=== PATIENT | male | born 1970 | race Two or more races ===

== ENCOUNTER 2017-09-22 13:07 | Emergency (ER) | payer BC ==
[2017-09-22] VITALS (7 sets, daily range): BP systolic 116–141; BP diastolic 64–83
[~2017-09-22] VITALS: Ht 170.2 cm; Wt 92.5 kg
[~2017-09-22 13:07] MED LIST: ATIVAN1 MG ORAL; LIBRIUM25 MG ORAL; PEPCID20 MG ORAL; PEPCID40 MG PO; PERCOCET 5-3251 EACH ORAL; PREVACID30 MG PO; PRILOSEC20 MG ORAL; PRILOSEC20 MG PO; PRILOSEC40 MG ORAL; PROTONIX40 MG ORAL; TRAMADOL HCL50 MG ORAL; TYLENOL EXTRA500 MG ORAL; TYLENOL650 MG/20. ORAL; ZITHROMAX250 MG ORAL; ZOFRAN ODT4 MG ORAL
[2017-09-22] MEDS ORDERED: Morphine Sulfate 4mg/ml Inj IVP ONE (13:30)
--- NOTE | 2017-09-22 13:40 | Emergency Room Report ---
History of Present Illness General Chief Complaint: Abdominal Pain Source: Patient (Emanuel Quiroz M.D.) Present Illness HPI The patient presents with lower abdominal pain that began yesterday morning. It 's constant and has gotten more severe (08/11). It's tried taking Tylenol without any help. He's been vomiting constantly. He's also passed some dark stool. He does drink alcohol but not daily. He sometimes gets the shakes when he stops drinking. He's never had abdominal pain like this. He states the radiates to his lower back. It is bilateral in the lower abdomen. He's been seen before for abdominal pain, but that was epigastric. There is mild tenderness there at this time, but much less than the pain in his lower abdomen. No dysuria, hematuria. No URI sy, cough, dyspnea, chest pain. No rashes. No headache. No fever. No dizziness. 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 Nursing Documentation: PMH: Agreed, PSxH: Agreed (Emanuel Quiroz M.D.) Nursing Documentation-PMH Hx Cardiac Problems: No Hx Cancer: No Hx Gastrointestinal Problems: Yes Hx Neurological Problems: Yes - addiction to alcohol Hx Neurologic Surgery: No (Emanuel Quiroz M.D.) Review of Systems All Other Systems: negative except mentioned in HPI (Emanuel Quiroz M.D.) Physical Exam Vital Signs Date Time Temp Pulse Resp B/P (MAP) Pulse Ox O2 Delivery O2 Flow Rate FiO2 09/22/17 13:13 97.9 87 20 145/88 95 Room Air Sp02 EP Interpretation: reviewed, normal General Appearance: well appearing, no apparent distress, GCS 15 Head: normocephalic Eyes: left eye other - L lid swelling without d/c, bilateral eye normal inspection, bilateral eye PERRL ENT: moist mucus membranes Neck: supple Respiratory: chest non-tender, lungs clear, normal breath sounds Cardiovascular #1: regular rate, rhythm Cardiovascular #2: 2+ radial (R) Gastrointestinal: normal inspection, normal bowel sounds, no mass, non- distended, no rebound, guarding - lower abdomen, not specific side, tenderness Rectal: heme positive stool - trace = brown Musculoskeletal: back normal, gait/station normal, normal range of motion Neurologic: alert, oriented x3, other, grossly normal Psychiatric: depressed affect Skin: normal inspection, warm/dry, other (Emanuel Quiroz M.D.) Medical Decision Making Diagnostic Impression: Primary Impression: Abdominal pain Qualified Codes: R10.30 - Lower abdominal pain, unspecified Additional Impressions: Alcohol abuse Guaiac + stool Mild alcohol withdrawal Hyperglycemia Elevated liver function tests ER Course Patient presents with severe low abdominal pain and vomiting. Differential includes gastritis, GERD, peptic ulcer disease, diverticulitis, appendicitis, viral syndrome, UTI amongst others. Due to the severity of the pain the patient will receive IV hydration, Pepcid, Zofran and morphine. He is also requesting something for the shakes. Due the severity of the pain also is evaluation will include a chest x-ray and abdominal CT with oral and IV contrast. We'll also obtain labs Initially the CT was ordered. However because the patient's white count is normal and the pain was some improved after treatment CT was canceled and abdominal film was ordered instead. Still with lower abdominal pain. Percocet given. CT June 2016 reviewed: Impression: A few nonspecific mildly prominent jejunal loops in the left upper quadrant, of doubtful significance, mild enteritis or ileus can't completely excludable No acute process otherwise Small fat-containing umbilical hernia Fatty liver Incidental findings as noted, including stable density at the entry to the right inguinal canal, stable low-attenuation area within the prostate, dependent pulmonary atelectatic changes Examined with RLQ tenderness (my exam is bilateral tenderness). Dr. Hanks suggests CT. Signed out to Dr. Hanks. Laboratory Tests Test 09/22/17 13:30 09/22/17 13:40 Urine Color Pale yellow Urine Appearance Clear Urine pH 6 (4.5-8.0) Urine Specific [place] 1.025 (1.005-1.035) Urine Protein 1+ (NEGATIVE) H Urine Glucose (UA) 4+ (NEGATIVE) H Urine Ketones Negative (NEGATIVE) Urine Occult Blood Negative (NEGATIVE) Urine Nitrite Negative (NEGATIVE) Urine Bilirubin Negative (NEGATIVE) Urine Urobilinogen Normal MG/DL (0.0-1.0) Urine Leukocyte Esterase Negative (NEGATIVE) Urine RBC 0 /HPF (0 - 0) Urine WBC 0-2 /HPF (0 - 0) Urine Squamous Epithelial Cells Occasional /LPF Urine Bacteria None /HPF (NONE) White Blood Count 6.6 K/UL (4.8-10.8) Red Blood Count 4.58 M/UL (4.70-6.10) L Hemoglobin 15.1 G/DL (14.2-18.0) Hematocrit 45.2 % (42.0-52.0) Mean Corpuscular Volume 99 FL (80-99) Mean Corpuscular Hemoglobin 32.9 PG (27.0-31.0) H Mean Corpuscular Hemoglobin Concent 33.3 G/DL (32.0-36.0) Red Cell Distribution Width 11.3 % (11.6-14.8) L Platelet Count 268 K/UL (150-450) Mean Platelet Volume 6.1 FL (6.5-10.1) L Neutrophils (%) (Auto) 60.6 % (45.0-75.0) Lymphocytes (%) (Auto) 24.5 % (20.0-45.0) Monocytes (%) (Auto) 10.8 % (1.0-10.0) H Eosinophils (%) (Auto) 3.1 % (0.0-3.0) H Basophils (%) (Auto) 0.9 % (0.0-2.0) Prothrombin Time 9.8 SEC (9.30-11.50) Prothrombin Time INR 0.9 (0.9-1.1) PTT 27 SEC (23-33) Sodium Level 138 MMOL/L (136-145) Potassium Level 3.8 MMOL/L (3.5-5.1) Chloride Level 103 MMOL/L (98-107) Carbon Dioxide Level 25 MMOL/L (21-32) Anion Gap 10 mmol/L (5-15) Blood Urea Nitrogen 9 mg/dL (7-18) Creatinine 0.7 MG/DL (0.55-1.30) Estimate Glomerular Filtration Rate > 60 mL/min (>60) Glucose Level 184 MG/DL (74-106) H Calcium Level 8.9 MG/DL (8.5-10.1) Total Bilirubin 0.3 MG/DL (0.2-1.0) Aspartate Amino Transferase (AST) 58 U/L (15-37) H Alanine Aminotransferase (ALT) 108 U/L (12-78) H Alkaline Phosphatase 133 U/L (46-116) H Troponin I 0.000 ng/mL (0.000-0.056) Total Protein 7.7 G/DL (6.4-8.2) Albumin 3.5 G/DL (3.4-5.0) Globulin 4.2 g/dL Albumin/Globulin Ratio 0.8 (1.0-2.7) L Lipase 179 U/L (73-393) (Emanuel Quiroz M.D.) ER Course Please refer to the initial note for the history examined the presentation Patient was pending CAT scan imaging At this time read by radiology as no acute disease Please note that there is a considerable delay in final workup as the CAT scan machine is not functioning at this facility patient requires transfer And has now returned with the CT imaging Patient doing clinically better and stable for close outpatient followup Labs Test 09/22/17 13:30 09/22/17 13:40 Urine Color Pale yellow Urine Appearance Clear Urine pH 6 (4.5-8.0) Urine Specific [place] 1.025 (1.005-1.035) Urine Protein 1+ (NEGATIVE) Urine Glucose (UA) 4+ (NEGATIVE) Urine Ketones Negative (NEGATIVE) Urine Occult Blood Negative (NEGATIVE) Urine Nitrite Negative (NEGATIVE) Urine Bilirubin Negative (NEGATIVE) Urine Urobilinogen Normal MG/DL (0.0-1.0) Urine Leukocyte Esterase Negative (NEGATIVE) Urine RBC 0 /HPF (0 - 0) Urine WBC 0-2 /HPF (0 - 0) Urine Squamous Epithelial Cells Occasional /LPF Urine Bacteria None /HPF (NONE) White Blood Count 6.6 K/UL (4.8-10.8) Red Blood Count 4.58 M/UL (4.70-6.10) Hemoglobin 15.1 G/DL (14.2-18.0) Hematocrit 45.2 % (42.0-52.0) Mean Corpuscular Volume 99 FL (80-99) Mean Corpuscular Hemoglobin 32.9 PG (27.0-31.0) Mean Corpuscular Hemoglobin Concent 33.3 G/DL (32.0-36.0) Red Cell Distribution Width 11.3 % (11.6-14.8) Platelet Count 268 K/UL (150-450) Mean Platelet Volume 6.1 FL (6.5-10.1) Neutrophils (%) (Auto) 60.6 % (45.0-75.0) Lymphocytes (%) (Auto) 24.5 % (20.0-45.0) Monocytes (%) (Auto) 10.8 % (1.0-10.0) Eosinophils (%) (Auto) 3.1 % (0.0-3.0) Basophils (%) (Auto) 0.9 % (0.0-2.0) Prothrombin Time 9.8 SEC (9.30-11.50) Prothromb Time International Ratio 0.9 (0.9-1.1) Activated Partial Thromboplast Time 27 SEC (23-33) Sodium Level 138 MMOL/L (136-145) Potassium Level 3.8 MMOL/L (3.5-5.1) Chloride Level 103 MMOL/L (98-107) Carbon Dioxide Level 25 MMOL/L (21-32) Anion Gap 10 mmol/L (5-15) Blood Urea Nitrogen 9 mg/dL (7-18) Creatinine 0.7 MG/DL (0.55-1.30) Estimat Glomerular Filtration Rate > 60 mL/min (>60) Glucose Level 184 MG/DL (74-106) Calcium Level 8.9 MG/DL (8.5-10.1) Total Bilirubin 0.3 MG/DL (0.2-1.0) Aspartate Amino Transf (AST/SGOT) 58 U/L (15-37) Alanine Aminotransferase (ALT/SGPT) 108 U/L (12-78) Alkaline Phosphatase 133 U/L (46-116) Troponin I 0.000 ng/mL (0.000-0.056) Total Protein 7.7 G/DL (6.4-8.2) Albumin 3.5 G/DL (3.4-5.0) Globulin 4.2 g/dL Albumin/Globulin Ratio 0.8 (1.0-2.7) Lipase 179 U/L (73-393) Serum Alcohol 5 mg/dL (OTILIA HANKS.Padmini) EKG Diagnostic Results Rate: normal Rhythm: NSR ST Segments: no acute changes (Emanuel Quiroz M.D.) Rhythm Strip Diag. Results EP Interpretation: yes Rhythm: NSR, no PVC's, no ectopy (Emanuel Quiroz M.D.) Other X-Ray Diagnostic Results Other X-Ray Diagnostic Results : # of Views/Limited Vs Complete: 2 View Indication: Pain EP Interpretation: Yes Interpretation: nonspecific bowel gas, no sbo, other - no masses (Emanuel Quiroz M.D.) CT/MRI/US Diagnostic Results CT/MRI/US Diagnostic Results : Impression CT abdomen pelvis: Refer to her report for full specifics, no evidence of diverticulitis, no evidence of appendicitis no acute disease (OTILIA HANKS D.O.) Last Vital Signs Date Time Temp Pulse Resp B/P (MAP) Pulse Ox O2 Delivery O2 Flow Rate FiO2 09/22/17 17:25 97.7 83 18 121/65 98 Room Air Status: improved (Emanuel Quiroz M.D.) Status: improved (OTILIA HANKS D.O.) Disposition: HOME, SELF-CARE Condition: Improved Scripts Famotidine (PEPCID) 20 Mg Tablet 20 MG ORAL BEDTIME, #7 TAB 0 Refills Prov: OTILIA HANKS D.O. 09/22/17 Additional Instructions: Patient is provided with the discharge instructions notified to follow up with primary doctor in the next 2-3 days otherwise return to the er with any worsening symptoms. Please note that this report is being documented using [employer] technology. This can lead to erroneous entry secondary to incorrect interpretation by the dictating instrument. Emanuel Quiroz M.D. Sep 22, 2017 13:40 OTILIA HANKS D.O. Sep 22, 2017 21:18
[2017-09-22] MEDS ORDERED: LORazepam Inj 2mg/ml 1ml IV ONE (13:45)
[2017-09-22 13:53] LABS: APPEARANCE,URINE CLEAR; KETONES,URINE NEGATIVE (NEGATIVE); LEUKOCYTE ESTERASE ,URINE NEGATIVE (NEGATIVE); NITRITE,URINE NEGATIVE (NEGATIVE); PH,URINE 6 (4.5-8.0); PROTEIN,URINE 1+ (NEGATIVE); UROBILINOGEN,URINE NORMAL MG/DL (0.0-1.0)
[2017-09-22 14:03] LABS: RBC,URINE 0 /HPF (0 - 0); SQUAMOUS EPITHELIAL CELL,UR OCCASIONAL /LPF (NONE/OCC); WBC,URINE 0-2 /HPF (0 - 0)
[2017-09-22 14:14] LABS: BASOPHILS % (AUTO) 0.9 % (0.0-2.0); EOSINOPHILS % (AUTO) 3.1 % (0.0-3.0); LYMPHOCYTES % (AUTO) 24.5 % (20.0-45.0); MEAN CORPUSCULAR HEMOGLOBIN 32.9 PG (27.0-31.0); MEAN CORPUSCULAR HGB CONC 33.3 G/DL (32.0-36.0); MEAN CORPUSCULAR VOLUME 99 FL (80-99); MEAN PLATELET VOLUME 6.1 FL (6.5-10.1); MONOCYTES % (AUTO) 10.8 % (1.0-10.0); NEUTROPHILS % (AUTO) 60.6 % (45.0-75.0); PLATELET COUNT 268 K/UL (150-450); RED BLOOD COUNT 4.58 M/UL (4.70-6.10); RED CELL DISTRIBUTION WIDTH 11.3 % (11.6-14.8); WHITE BLOOD COUNT 6.6 K/UL (4.8-10.8)
[2017-09-22 14:27] LABS: ALANINE AMINOTRANSFERASE 108 U/L (12-78); ALBUMIN/GLOBULIN RATIO 0.8 (1.0-2.7); ANION GAP 10 mmol/L (5-15); ASPARTATE AMINO TRANSFERASE 58 U/L (15-37); CALCIUM 8.9 MG/DL (8.5-10.1); CARBON DIOXIDE 25 MMOL/L (21-32); CHLORIDE 103 MMOL/L (98-107); CREATININE 0.7 MG/DL (0.55-1.30); GLOMERULAR FILTRATION RATE > 60 mL/min (>60); LIPASE 179 U/L (73-393); POTASSIUM 3.8 MMOL/L (3.5-5.1); SODIUM 138 MMOL/L (136-145); TOTAL PROTEIN 7.7 G/DL (6.4-8.2)
[2017-09-22 14:28] LABS: INR 0.9 (0.9-1.1); PROTHROMBIN TIME 9.8 SEC (9.30-11.50)
[2017-09-22] MEDS ORDERED: oxyCODONE HCL/Acetaminophen 5/325mg ORAL ONE (16:15)
[2017-09-22] MEDS ORDERED: PEPCID20 MG ORAL (21:12)
--- NOTE | 2017-09-23 08:15 | Diagnostic Imaging Report ---
Indication: Shortness of breath Technique: One view of the chest Comparison: 10/11/2014 Findings: Lungs and pleural spaces are clear. Heart size is upper limits normal. No significant change Impression: No acute process This agrees with the preliminary interpretation provided by the emergency room physician
--- NOTE | 2017-09-23 10:45 | Diagnostic Imaging Report ---
Indication: Abdominal pain Technique: Supine view of the abdomen Comparison: 07/15/2016 Findings: Unremarkable bowel gas pattern. Unusual masses or calcifications. The bones are unremarkable Impression: Negative This agrees with the preliminary interpretation provided by the emergency room physician
--- NOTE | 2017-09-24 08:46 | Cardiology Report ---
APPROVED REPORT EKG Measurement Heart [id number] Normal sinus rhythm Normal ECG
== END 2017-09-22 21:25 | disposition home or self-care (01) ==
LOC: EMR 14:30
DX: R10.30 Lower abdominal pain, unspecified (principal); R19.5 Other fecal abnormalities; F10.239 Alcohol dependence with withdrawal, unspecified; R79.89 Other specified abnormal findings of blood chemistry; R73.9 Hyperglycemia, unspecified; R06.02 Shortness of breath
CPT/HCPCS: 36415; 71010; 74000; 80053; 81003; 83690; 84484; 85025; 85610; 85730; 86850; 86900; 86901; 93005; 96361; 96374; 96375; 99284; G0480; J2270; J2405; S0028; 80329

== ENCOUNTER 2020-08-14 22:03 | Inpatient (IN) | payer BC, OTHER ==
[~2020-08-14] VITALS: Ht 167.6 cm; Wt 93.0 kg
[~2020-08-14 22:03] MED LIST changes: +JANUVIA100 MG ORAL; +PANTOPRAZOLE SO40 MG ORAL
[2020-08-14 22:18] VITALS: BP 138/85
--- NOTE | 2020-08-14 22:18 | NUR ---
ED Nurse Note: pt ambulated into ed from home CO 9/10 lower abdominal pain that radiates to lower back. Pt aao x 4, ambulates with steady gait, skin intact. Pt states that pain started today but has n/v x 3 days, denies fever, diarrhea. Pt states that issue has happened recently in the past and pt was seen at [facility] [place] [place] for same complaint. Pt VSS, facial grimacing noted. ERMD at bedside. Awaiting further orders.
[2020-08-14] MEDS ORDERED: chlordiazePOXIDE 25mg Cap ORAL ONE (22:30)
[2020-08-14] MEDS ORDERED: Lidocaine 2% Visc 15ml soln ORAL ONE (22:30)
[2020-08-14] MEDS ORDERED: Omnipaque-300 100ml vial INJ PRN (22:30)
[2020-08-14] MEDS ORDERED: Ketorolac 30mg Inj IV ONE (22:30)
[2020-08-14] MEDS ORDERED: Dicyclomine HCl 10mg/5ml oral soln ORAL ONE (22:30)
[2020-08-14] MEDS ORDERED: Mylanta II UD 30ml ORAL ONE (22:30)
--- NOTE | 2020-08-14 22:30 | NUR ---
ED Nurse Note: all blood work and urine obtained and sent to lab.
--- NOTE | 2020-08-14 22:40 | Emergency Room Report ---
History of Present Illness General Chief Complaint: Abdominal Pain Source: Patient Present Illness HPI 49-year-old male here with right lower quadrant abdominal pain. Patient was recently in the hospital approximately 2 weeks ago for alcoholic gastritis and an upper GI bleed. Patient was discharged with prescription for Protonix which he says he has been taking. He has continued to drink daily. Last drink was about 24 hours ago. Patient says that he is also having tremulousness right now and "I need something for the shakes." He says the pain is located mostly in the right lower quadrant and radiates to the left lower quadrant. Has felt nauseous but has not vomited. No diarrhea. No fevers, chills, chest pain, palpitations, shortness of breath, back pain, diarrhea. Says he is also complaining of some mild dysuria as well. No penile discharge. 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 Nursing Documentation-[facility] Past Medical History: No History, Except For Hx Cardiac Problems: No Hx Hypertension: Yes Hx Diabetes: Yes Hx Cancer: No Hx Gastrointestinal Problems: Yes Hx Neurological Problems: No Hx Cerebrovascular Accident: Yes - 2018 Hx Neurologic Surgery: No Review of Systems All Other Systems: negative except mentioned in HPI Physical Exam Vital Signs Date Time Temp Pulse Resp B/P (MAP) Pulse Ox O2 Delivery O2 Flow Rate FiO2 08/14/20 22:08 98.4 101 18 138/85 (102) 96 Room Air Sp02 EP Interpretation: reviewed, normal General Appearance: alert, non-toxic, other - Appears uncomfortable, mildly tremulous Head: normocephalic, atraumatic Eyes: bilateral eye normal inspection, bilateral eye PERRL ENT: hearing grossly normal, normal pharynx, no angioedema, normal voice Neck: full range of motion, supple/symm/no masses Respiratory: chest non-tender, lungs clear, normal breath sounds, speaking full sentences Cardiovascular #1: regular rate, rhythm, no edema Cardiovascular #2: 2+ carotid (R), 2+ carotid (L), 2+ radial (R), 2+ radial (L) , 2+ dorsalis pedis (R), 2+ dorsalis pedis (L) Gastrointestinal: normal bowel sounds, soft, non-distended, no guarding, no rebound, other - Pain on palpation in multiple regions including the epigastric area, left upper quadrant, right lower quadrant, left lower quadrant. Pain worst at the right lower quadrant. Positive Rovsing sign. Negative Monzon sign Rectal: deferred Genitourinary: normal inspection, no CVA tenderness Musculoskeletal: back normal, normal range of motion, calf tenderness, gait/ station normal, non-tender Neurologic: alert, motor strength/tone normal, sensory intact, responsive, speech normal Psychiatric: judgement/insight normal, memory normal, mood/affect normal, no suicidal/homicidal ideation Lymphatic: no adenopathy Medical Decision Making Diagnostic Impression: Primary Impression: Infectious colitis Additional Impressions: UTI (urinary tract infection) Pyelonephritis Alcohol withdrawal ER Course Laboratory Tests Test 08/14/20 22:15 08/14/20 22:59 White Blood Count 4.9 K/UL (4.8-10.8) Red Blood Count 4.80 M/UL (4.70-6.10) Hemoglobin 15.3 G/DL (14.2-18.0) Hematocrit 45.8 % (42.0-52.0) Mean Corpuscular Volume 95 FL (80-99) Mean Corpuscular Hemoglobin 31.9 PG (27.0-31.0) H Mean Corpuscular Hemoglobin Concent 33.4 G/DL (32.0-36.0) Red Cell Distribution Width 12.2 % (11.6-14.8) Platelet Count 249 K/UL (150-450) Mean Platelet Volume 6.3 FL (6.5-10.1) L Neutrophils (%) (Auto) 54.5 % (45.0-75.0) Lymphocytes (%) (Auto) 35.1 % (20.0-45.0) Monocytes (%) (Auto) 8.3 % (1.0-10.0) Eosinophils (%) (Auto) 0.8 % (0.0-3.0) Basophils (%) (Auto) 1.3 % (0.0-2.0) Urine Color Yellow Urine Appearance Slightly cloudy Urine pH 5 (4.5-8.0) Urine Specific [place] 1.025 (1.005-1.035) Urine Protein 3+ (NEGATIVE) H Urine Glucose (UA) 4+ (NEGATIVE) H Urine Ketones 1+ (NEGATIVE) H Urine Blood 1+ (NEGATIVE) H Urine Nitrite Negative (NEGATIVE) Urine Bilirubin Negative (NEGATIVE) Urine Urobilinogen Normal MG/DL (0.0-1.0) Urine Leukocyte Esterase 1+ (NEGATIVE) H Urine RBC 2-4 /HPF (0 - 0) H Urine WBC 5-10 /HPF (0 - 0) H Urine Squamous Epithelial Cells Occasional /LPF Urine Bacteria Moderate /HPF (NONE) H Urine Mucus Many /LPF (NONE/OCC) H Sodium Level 140 MMOL/L (136-145) Potassium Level 3.5 MMOL/L (3.5-5.1) Chloride Level 102 MMOL/L (98-107) Carbon Dioxide Level 26 MMOL/L (21-32) Anion Gap 12 mmol/L (5-15) Blood Urea Nitrogen 12 mg/dL (7-18) Creatinine 0.8 MG/DL (0.55-1.30) Estimated Glomerular Filtration Rate > 60 mL/min (>60) Glucose Level 275 MG/DL (74-106) H Calcium Level 8.6 MG/DL (8.5-10.1) Total Bilirubin 0.5 MG/DL (0.2-1.0) Aspartate Amino Transferase (AST) 67 U/L (15-37) H Alanine Aminotransferase (ALT) 140 U/L (12-78) H Alkaline Phosphatase 117 U/L (46-116) H Total Protein 8.1 G/DL (6.4-8.2) Albumin 4.0 G/DL (3.4-5.0) Globulin 4.1 g/dL Albumin/Globulin Ratio 1.0 (1.0-2.7) Lipase 177 U/L (73-393) Acetone Level Negative (NEGATIVE) Venous Blood pH 7.353 Venous Blood Partial Pressure CO2 45 Venous Blood Partial Pressure O2 49.6 Venous Blood HCO3 24.5 Venous Blood Base Excess -1.4 Venous Blood Carboxyhemoglobin 0.6 % (0.5-1.5) Methemoglobin 0.5 CT abdomen pelvis: Stranding about the perinephric spaces bilaterally. Status post appendectomy. Mild or early inflammatory or infectious colitis of the descending colon. EKG: Rate 88 bpm. Sinus rhythm. Normal axis. No ectopy. No ST or T wave abnormalities 49-year-old male with history of alcohol abuse, alcoholic gastritis, recent upper GI bleed, here with lower abdominal pain. Patient was also complaining of dysuria. Urinalysis showed evidence of urinary tract infection. He was given Rocephin in the emergency department. CT abdomen pelvis also revealed descending colitis, concerning for infectious colitis. Patient was also given Flagyl in the emergency department. Patient was also notably hyperglycemic with a initial blood glucose of 275. He was given 6 units of insulin IV and repeat glucose was moderately improved. Patient has been noncompliant with his insulin regimen and continues to drink alcohol. Acetone negative and VBG did not reveal acidosis. No evidence of DKA at this time. He showed evidence of some tremulousness and was given Ativan in the emergency department with good resolution of his tremulousness. To be admitted to [facility] for UTI and infectious colitis. Last Vital Signs Date Time Temp Pulse Resp B/P (MAP) Pulse Ox O2 Delivery O2 Flow Rate FiO2 08/14/20 22:08 98.4 101 18 138/85 (102) 96 Room Air Disposition: ADMITTED INPATIENT Condition: Stable Will Ordoñez M.D. Aug 14, 2020 22:40
--- NOTE | 2020-08-14 22:40 | NUR ---
ED Nurse Note: all medications adminsitered, pt tolerated well no ss of distress noted. will continue to monitor.
[2020-08-14 22:52] LABS: BASOPHILS % (AUTO) 1.3 % (0.0-2.0); EOSINOPHILS % (AUTO) 0.8 % (0.0-3.0); HEMATOCRIT 45.8 % (42.0-52.0); HEMOGLOBIN 15.3 G/DL (14.2-18.0); LYMPHOCYTES % (AUTO) 35.1 % (20.0-45.0); MEAN CORPUSCULAR VOLUME 95 FL (80-99); MONOCYTES % (AUTO) 8.3 % (1.0-10.0); NEUTROPHILS % (AUTO) 54.5 % (45.0-75.0); PLATELET COUNT 249 K/UL (150-450); RED CELL DISTRIBUTION WIDTH 12.2 % (11.6-14.8); WHITE BLOOD COUNT 4.9 K/UL (4.8-10.8)
[2020-08-14 22:54] LABS: APPEARANCE,URINE SLIGHTLY CLOUDY; BILIRUBIN, URINE NEGATIVE (NEGATIVE); GLUCOSE, URINE (UA) 4+ (NEGATIVE); KETONES,URINE 1+ (NEGATIVE); LEUKOCYTE ESTERASE ,URINE 1+ (NEGATIVE); NITRITE,URINE NEGATIVE (NEGATIVE); PH,URINE 5 (4.5-8.0); PROTEIN,URINE 3+ (NEGATIVE); UROBILINOGEN,URINE NORMAL MG/DL (0.0-1.0)
[2020-08-14 22:55] LABS: COLOR,URINE YELLOW
[2020-08-14] MEDS ORDERED: Insulin Human Regular 100units/ml 3ml IV ONE (23:00)
[2020-08-14 23:07] LABS: ANION GAP 12 mmol/L (5-15); BLOOD UREA NITROGEN 12 mg/dL (7-18); CALCIUM 8.6 MG/DL (8.5-10.1); CARBON DIOXIDE 26 MMOL/L (21-32); CHLORIDE 102 MMOL/L (98-107); CREATININE 0.8 MG/DL (0.55-1.30); POTASSIUM 3.5 MMOL/L (3.5-5.1); SODIUM 140 MMOL/L (136-145)
[2020-08-14 23:11] LABS: ALANINE AMINOTRANSFERASE 140 U/L (12-78); ALKALINE PHOSPHATASE 117 U/L (46-116); ASPARTATE AMINO TRANSFERASE 67 U/L (15-37); BILIRUBIN,TOTAL 0.5 MG/DL (0.2-1.0)
[2020-08-14] MEDS ORDERED: cefTRIAXone 1 GM in NS 55 ML IVPB ONE (23:15)
--- NOTE | 2020-08-14 23:15 | NUR ---
ED Nurse Note: VBG obtained and sent to RT
--- NOTE | 2020-08-14 23:59 | NUR ---
ED Nurse Note: pt taken to CT in stable condition.
[2020-08-15] VITALS (7 sets, daily range): BP systolic 122–144; BP diastolic 68–90
--- NOTE | 2020-08-15 00:50 | NUR ---
ED Nurse Note: pt returned from CT in stable condition.
--- NOTE | 2020-08-15 00:51 | Diagnostic Imaging Report ---
EXAM: CT Abdomen and Pelvis With Intravenous Contrast CLINICAL HISTORY: PAIN TECHNIQUE: Axial computed tomography images of the abdomen and pelvis with intravenous contrast. CTDI is 9.10 mGy and DLP is 492.40 mGy-cm. One or more of the following dose reduction techniques were used: automated exposure control, adjustment of the mA and/or kV according to patient size, use of iterative reconstruction technique. COMPARISON: 06/21/2016. FINDINGS: Limitations: Limited evaluation of the motion artifact could Lung bases: Patchy airspace disease noted posteriorly at the lung bases presumably in the basilar atelectasis. Pneumonia cannot be excluded and clinical correlation is advised to Probable atelectasis versus pneumonia within the lingular region. Heart: Mild cardiomegaly. Mediastinum: Small hiatal hernia and probable distal esophagitis. ABDOMEN: Liver: Diffuse fatty infiltration of the liver is noted. The liver and the spleen enhance uniformly. Gallbladder and bile ducts: See below. Pancreas: See below. Spleen: See above. Adrenals: The adrenal glands, the head, body, tail of the pancreas, and the gallbladder are unremarkable. Kidneys and ureters: Both kidneys are shown to excrete contrast bilaterally without renal calculus or hydronephrosis. Minimal nonspecific stranding about the perinephric spaces bilaterally. Stomach and bowel: Moderate quantity of stool throughout the colon. No evidence of bowel obstruction. Findings suggestive of diffuse wall thickening of the descending colon extending to the sigmoid colon suggestive of mild or early inflammatory or infectious colitis. PELVIS: Appendix: Status post appendectomy. Bladder: Unremarkable. No mass. Reproductive: Prostate gland measures 5 x 5.8 cm zone is enlarged. ABDOMEN and PELVIS: Intraperitoneal space: Unremarkable. No free air. No significant fluid collection. Bones/joints: No acute fracture. No dislocation. Soft tissues: 2 cm umbilical hernia containing mesenteric fat only. Ischiorectal fat is clean. Vasculature: Flow is demonstrated within the celiac, SMA, the renal arteries, and TRACE. No abdominal aortic aneurysm. Lymph nodes: No retroperitoneal lymphadenopathy. No pelvic or inguinal lymphadenopathy. Other findings: Elevation of the right hemidiaphragm. Ischemic etiologies felt to be unlikely. IMPRESSION: 1. Diffuse fatty infiltration of the liver. 2. The gallbladder is unremarkable. 3. Nonspecific stranding about the perinephric spaces. 4. Status post appendectomy. 5. No evidence of bowel obstruction. 6. Findings suggestive of mild or early inflammatory or infectious colitis of the descending colon extending to the sigmoid colon. 7. Enlarged prostate gland.
[2020-08-15] MEDS ORDERED: Morphine Sulfate 4mg/ml Inj (IV USE ONLY) IVP ONE (01:45)
--- NOTE | 2020-08-15 02:00 | NUR ---
ED Nurse Note: all medications administered, pt tolerated well no ss of distress noted. will continue to monitor.
--- NOTE | 2020-08-15 03:21 | NUR ---
ED Nurse Note: Report given to Abebe Devlin on MS unit
--- NOTE | 2020-08-15 03:38 | NUR ---
ER DISCHARGE NOTE: Patient is cleared to be discharged to MS unit per ERMD, pt is aox4, 99% on room air, with stable vital signs. pt was able to verbalize understanding. pt is able to ambulate with steady gait. pt took all belongings. Report given to Abebe Devlin on MS unit. 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
--- NOTE | 2020-08-15 03:58 | NUR ---
NURSE NOTES: Patient came from ER via gurney. Report given by KIKA Avitia. Patient is awake, alert x4. On room air with no signs of distress or SOB. VSS. Skin in tact. Ambulatory with steady gate. Belongings accounted for. Left AC 20g IV intact and patent. Bed locked and in lowest position. Call light in reach. Patient currently C/O nausea and abdominal pain. Admission orders received from Dr. Lio Mcmanus. Will follow plan of care.
[2020-08-15] MEDS ORDERED: Morphine Sulfate 2mg/ml Inj(IV/IM USE ONLY) IVP PRN (04:15)
--- NOTE | 2020-08-15 04:35 | NUR ---
NURSE NOTES: Patient noted with visible tremors. Spoke with Dr. Mcmanus. New orders received.
[2020-08-15] MEDS: Morphine Sulfate 4mg/ml Inj (IV USE ONLY) IVP PRN ×4 (04:46→20:06)
[2020-08-15] MEDS: LORazepam Inj 2mg/ml 1ml IV PRN ×4 (04:55→20:07)
--- NOTE | 2020-08-15 06:23 | NUR ---
NURSE HAND-OFF: Important Events on Shift: Admission, pain/nausea control Patient Status: Stable Diet: Clear Liquid Pending Orders: Remaining admission orders Pending Results/Labs: N/A Pending MD notification: N/A Latest Vital Signs: Temperature 98.1 , Pulse 94 , B/P 123 /79 , Respiratory Rate 18 , O2 SAT 97 , Room Air, O2 Flow Rate . Vital Sign Comment: Latest Vanessa Fall Score: 35 Fall Risk: Medium Risk Safety Measures: Call light Within Reach, Bed Alarm Zone 1, Side Rails Side Rails x2, Bed position Low and Locked. Fall Precautions: Patient Fall Education Addendum: 08/15/20 at 0626 by ROGER GOODWIN RN Full Liquid Diet Addendum: 08/15/20 at 0730 by ROGER GOODWIN RN Report given to KIKA Leon
--- NOTE | 2020-08-15 07:34 | NUR ---
NURSE NOTES: Report received from KIKA Devlin. Patient seen in bed, AAOx4, on room air, ambulatory. Patient able to make needs known. Patient denies pain or SOB at this time. Breathing is even and unlabored. IV site patent and intact. RN instructed patient to use call light before ambulating if felt dizzy or weak. Bed is locked and placed in lowest position. Call light within reach. Will continue to monitor
[2020-08-15] MEDS: metroNIDAZOLE 500mg tab ORAL SCH ×3 (08:41→20:05)
[2020-08-15] MEDS: cefTRIAXone 1 GM in D5W 55 ML IVPB SCH (08:41)
--- NOTE | 2020-08-15 09:00 | NUR ---
NURSE NOTES: RN tried to get recon meds for patient and asked what time patient has last taken certain medication. Patient unfamiliar with medication, but recalls having diabetic medication.
--- NOTE | 2020-08-15 12:16 | NUR ---
CASE MANAGEMENT: INITIAL REVIEW 49YR OLD MALE FROM HOME CC:ABDOMINAL PAIN SI:URINARY TRACT INFECTION . INFECTION COLITIS . PYELONEPHRITIS . ALCOHOL WITHDRAWAL 98.5 101 18 138/85 96% ON RA BG 275 AST/ALT 67/140 ALKP 117 URINE + PROTEIN +GLUCOSE + RBC+WBC +BACTERIA + MUCUS IS:IVF NS BOLUS X1 `IV ZOFRAN X1 IV PEPCID X1 MYLANTA P X1 LIDOCAINE PO X2 BENTYL PO X1 IV TORADOL X1 IV NOVOLIN R X[address] X[address] Abdomen Pelvis w/Contrast-Diffuse fatty infiltration of the liver. The gallbladder is unremarkable. Nonspecific stranding about the perinephric spaces. Status post appendectomy. No evidence of bowel obstruction. Findings suggestive of mild or early inflammatory or infectious colitis of the descending colon extending to the sigmoid colon. Enlarged prostate gland. \: 4E MED SURG UNIT DCP: HOME WHEN STABLE PLAN: MONITOR OUTPUT MANAGE PAIN CONT IV HYDRATION CONT IV ABD ALCOHOL ABUSE EDUCATION CASE MANAGEMENT: REVIEW 08/15/20 SI:URINARY TRACT INFECTION . INFECTION COLITIS . PYELONEPHRITIS . ALCOHOL WITHDRAWAL 97.3 82 18 135/68 98% ON RA NO LABS IS:IV ROCEPHIN QD FLAGYL PO TID PROTONIX PO QD IV MORPHINE SULFATE Q3HR/PRN \: 4E MED SURG UNIT DCP: HOME WHEN STABLE PLAN: MONITOR OUTPUT MANAGE PAIN CONT IV HYDRATION CONT IV ABD ALCOHOL ABUSE EDUCATION
--- NOTE | 2020-08-15 16:23 | NUR ---
*-* INSURANCE *-* UPDATED CLINICALS AND REVIEWS HAVE BEEN FAXED TO: Auth# [id number] Fax Clinicals: [phone] CM: Anna Foote [phone]
--- NOTE | 2020-08-15 19:36 | NUR ---
HAND-OFF: Report given to KIKA Sneed.
--- NOTE | 2020-08-15 19:46 | NUR ---
NURSE NOTES: Received patient awake, alert, verbal, resting in bed, comfortable.
[2020-08-15] MEDS ORDERED: Tamsulosin 0.4mg cap ORAL SCH (21:00)
[2020-08-15] MEDS ORDERED: Milk of Magnesia 30ml Ud ORAL PRN (21:00)
[2020-08-16] MEDS: Morphine Sulfate 4mg/ml Inj (IV USE ONLY) IVP PRN ×2 (00:08→04:16)
[2020-08-16] MEDS: LORazepam Inj 2mg/ml 1ml IV PRN ×2 (00:08→04:15)
[2020-08-16 04:05] VITALS: BP 143/91
[2020-08-16] MEDS: metroNIDAZOLE 500mg tab ORAL SCH (05:32)
[2020-08-16 06:52] LABS: ALANINE AMINOTRANSFERASE 126 U/L (12-78); ALBUMIN 3.4 G/DL (3.4-5.0); ALKALINE PHOSPHATASE 95 U/L (46-116); ANION GAP 8 mmol/L (5-15); ASPARTATE AMINO TRANSFERASE 71 U/L (15-37); BILIRUBIN,TOTAL 1.1 MG/DL (0.2-1.0); BLOOD UREA NITROGEN 15 mg/dL (7-18); CALCIUM 7.9 MG/DL (8.5-10.1); CARBON DIOXIDE 29 MMOL/L (21-32); CHLORIDE 106 MMOL/L (98-107); CHOLESTEROL 156 MG/DL (< 200); CREATININE 0.8 MG/DL (0.55-1.30); HDL CHOLESTEROL 44 MG/DL (40-60); POTASSIUM 3.8 MMOL/L (3.5-5.1); SODIUM 143 MMOL/L (136-145); TRIGLYCERIDES 176 MG/DL (30-150)
--- NOTE | 2020-08-16 07:18 | NUR ---
HAND-OFF: Report given to Edward Feliz RN.
--- NOTE | 2020-08-16 07:41 | NUR ---
NURSE NOTES: Report received from KIKA Sneed. Patient seen in bed, AAOx4, on room air, ambulatory. Patient able to make needs known. Patient complains on moderate pain, RN will give PRN medication. Breathing is even and unlabored. IV site patent and intact. RN instructed patient to use call light before ambulating if felt dizzy or weak. Bed is locked and placed in lowest position. Call light within reach. Will continue to monitor
[2020-08-16 08:00] VITALS: BP 143/84
--- NOTE | 2020-08-16 08:00 | History and Physical Report ---
DATE OF ADMISSION: 08/15/2020 CHIEF COMPLAINT: Abdominal pain and nausea. HISTORY OF PRESENT ILLNESS: This is a 49-year-old male who has history of alcohol abuse was recently admitted to the hospital at [place] for alcoholic gastritis and improved. He was sent home on some Ativan because he also was shaky and was in withdrawal due to this hospitalization. He now presents with similar symptoms. He has had nausea for the past two days and also lower abdominal pain. CT scan shows possible infectious colitis. He was admitted for further care. PAST MEDICAL HISTORY: History of diabetes, hypertension, and reported history of CVA in 2018. MEDICATIONS: Reviewed in [facility]. SOCIAL HISTORY: History of alcohol abuse as mentioned, he drinks about 6 to 8 beers a day. He still continues to drink. No history of smoking. REVIEW OF SYSTEMS: As above. PHYSICAL EXAMINATION: GENERAL: The patient is a 49-year-old male, in no acute distress. VITAL SIGNS: Blood pressure is 127/70, pulse 79, respirations 19, temperature 98.3. HEENT: [place] conjunctivae. Anicteric sclerae. NECK: Supple. LUNGS: Clear to auscultation. HEART: S1 and S2 without murmurs or rubs. ABDOMEN: Soft, nontender. EXTREMITIES: No cyanosis or edema. LABORATORY FINDINGS: CBC shows WBC of 4900, hematocrit is 45.8, hemoglobin 15.3, and platelet is 249,000. Chemistry panel shows serum sodium 140, potassium 3.5, chloride 102, CO2 26, BUN 12, creatinine 0.8, blood sugar is 275. UA shows 5 to 10 wbc's per high-power field and moderate bacteria. ASSESSMENT: This is a 49-year-old male who was admitted with abdominal pain and nausea, some suggestion of the colitis on the CT scan. He may also have some urinary tract infection with alcoholic liver disease. His nausea may be again from an alcoholic gastritis. PLAN: The patient will be on PPIs. He was started on full liquid diet and he is feeling better now. We will advance to a diabetic diet. The patient was started on antibiotics. Urine culture will be sent. ID consultation was called. Labs will be followed and adjustments will be made in the patient's regimen. Thank you very much for this consultation Derick Mcmanus M.D. DR: Ольга JOB#: [id number] CC:
--- NOTE | 2020-08-16 08:01 | Consultation ---
DATE OF CONSULTATION: 08/15/2020 INFECTIOUS DISEASES CONSULTATION CONSULTING PHYSICIAN: Lucius Mcmanus MD PRIMARY ATTENDING PHYSICIAN: Derick Mcmanus MD REASON FOR CONSULTATION: UTI. HISTORY OF PRESENT ILLNESS: This is a 49-year-old male admitted today complaining of lower abdominal pain and has also problem passing urine. The patient had a recent admission to [facility] around 2 weeks ago with alcoholic gastritis and still has nausea and vomiting. PAST MEDICAL HISTORY: Alcoholic gastritis, chronic alcohol abuse, GI bleeding, diabetes mellitus, hypertension, BPH, and CVA in 2018. ALLERGIES: No known drug allergies. PAST SURGICAL HISTORY: History of appendectomy. MEDICATIONS: Getting Januvia, milk of magnesia, Restoril, ceftriaxone, Protonix, and metronidazole. SOCIAL HISTORY: Originally from [place]. Single. Drinking 5 to 8 beers daily. Denies smoking and drug abuse. REVIEW OF SYSTEMS: No fever. No chills. He has nausea and vomiting. No coughing. No shortness of breath. He has lower abdominal pain. He has difficulty to start urine. PHYSICAL EXAMINATION: VITAL SIGNS: Temperature 97.3, pulse 73, blood pressure 130/66. GENERAL APPEARANCE: No acute distress. HEAD AND NECK: [place] conjunctivae. HEART: Normal rate. LUNGS: Clear. ABDOMEN: Soft and nontender. EXTREMITIES: He has no edema. NEUROLOGIC: He is awake, alert, and oriented x3. LABORATORY AND DIAGNOSTIC DATA: WBC 4.9, hemoglobin 15.3, hematocrit 54.8, and platelet is 249,000. Sodium 140, potassium 3.5, chloride 102, bicarb 26, BUN 12, creatinine 0.8, glucose 275. AST 67, ALT 140, alkaline phosphatase is 117. Acetone was negative. UA showed wbc's of [address] scan of the abdomen and pelvis showed diffuse fatty infiltration of liver, unremarkable gallbladder, nonspecific stranding about the perinephric spaces, mild or early inflammatory or infectious colitis of descending colon through sigmoid colon, and enlarged prostate gland. IMPRESSION: Pyuria, likely UTI. He has lower abdominal pain and dysuria. He also has BPH. May have mild or early colitis. He has fatty liver, alcoholic gastritis, alcohol abuse and dependence, diabetes mellitus, and hypertension. RECOMMENDATION: We will continue with ceftriaxone. We will follow up the culture. Consider starting treatment for BPH. At the end of my exam, I thank Dr. Derick Mcmanus for involving me in the care of this patient. Lucius Mcmanus M.D. DR: Wale JOB#: [id number] CC:
[2020-08-16] MEDS: cefTRIAXone 1 GM in D5W 55 ML IVPB SCH (08:05)
[2020-08-16 08:10] LABS: BILIRUBIN,DIRECT 0.2 MG/DL (0.0-0.3)
--- NOTE | 2020-08-16 10:51 | Infectious Diseases Prog Note ---
Assessment/Plan Assessment/Plan IMPRESSION: Pyuria, likely UTI. BPH. Early colitis. Alcoholic fatty liver, Alcoholic gastritis, Alcohol abuse and dependence, Diabetes mellitus, Hypertension. RECOMMENDATION: We will continue with ceftriaxone. We will follow up the cultures. Subjective ROS Limited/Unobtainable: No Constitutional: Reports: no symptoms Respiratory: Reports: no symptoms Cardiovascular: Reports: no symptoms Gastrointestinal/Abdominal: Reports: no symptoms Genitourinary: Reports: no symptoms Allergies: Coded Allergies: NO KNOWN ALLERGIES (Unverified Allergy, Unknown, 07/29/20) Objective Last 24 Hour Vital Signs Date Time Temp Pulse Resp B/P (MAP) Pulse Ox O2 Delivery O2 Flow Rate FiO2 08/16/20 09:00 Room Air 08/16/20 08:00 97.5 98 19 143/84 (103) 96 08/16/20 04:45 92 18 143/91 96 08/16/20 04:45 97.9 08/16/20 04:15 92 18 143/91 96 08/16/20 04:05 97.9 92 18 143/91 (108) 96 08/16/20 00:08 81 18 138/90 95 08/15/20 20:55 Room Air 08/15/20 20:07 81 18 138/90 95 08/15/20 20:07 97.9 81 18 138/90 (106) 95 08/15/20 16:00 97.5 83 17 130/68 (88) 99 08/15/20 15:19 79 19 127/70 99 08/15/20 12:00 98.3 79 19 127/70 (89) 99 Height (Feet): 5 Height (Inches): 6.00 Weight (Pounds): 205 General Appearance: no acute distress HEENT: mucous membranes moist Respiratory/Chest: lungs clear Cardiovascular: normal rate Abdomen: soft, non tender Extremities: no edema Neurologic/Psychiatric: alert, oriented x 3, responsive Microbiology Date/Time Source Procedure Growth Status 08/15/20 00:00 Nasopharynx SARS-CoV-2 RdRp Gene Assay - Final Complete 08/14/20 22:25 Blood Peripheral Blood Culture - Preliminary NO GROWTH AFTER 24 HOURS Resulted 08/14/20 22:15 Urine,Clean Catch Urine Culture - Preliminary Resulted 08/14/20 22:15 Blood Peripheral Blood Culture - Preliminary NO GROWTH AFTER 24 HOURS Resulted Laboratory Tests Test 08/16/20 05:40 Sodium Level 143 MMOL/L (136-145) Potassium Level 3.8 MMOL/L (3.5-5.1) Chloride Level 106 MMOL/L (98-107) Carbon Dioxide Level 29 MMOL/L (21-32) Anion Gap 8 mmol/L (5-15) Blood Urea Nitrogen 15 mg/dL (7-18) Creatinine 0.8 MG/DL (0.55-1.30) Estimat Glomerular Filtration Rate > 60 mL/min (>60) Glucose Level 221 MG/DL (74-106) H Hemoglobin A1c 9.0 % (4.3-6.0) H Calcium Level 7.9 MG/DL (8.5-10.1) L Total Bilirubin 1.1 MG/DL (0.2-1.0) H Direct Bilirubin 0.2 MG/DL (0.0-0.3) Aspartate Amino Transf (AST/SGOT) 71 U/L (15-37) H Alanine Aminotransferase (ALT/SGPT) 126 U/L (12-78) H Alkaline Phosphatase 95 U/L (46-116) Total Protein 6.9 G/DL (6.4-8.2) Albumin 3.4 G/DL (3.4-5.0) Globulin 3.5 g/dL Albumin/Globulin Ratio 1.0 (1.0-2.7) Triglycerides Level 176 MG/DL (30-150) H Cholesterol Level 156 MG/DL (< 200) LDL Cholesterol 86 mg/dL (<100) HDL Cholesterol 44 MG/DL (40-60) Cholesterol/HDL Ratio 3.5 (3.3-4.4) Thyroid Stimulating Hormone (TSH) 4.249 uiU/mL (0.358-3.740) Current Medications Medications (Trade) Dose Ordered Sig/[place] Route PRN Reason Start Time Stop Time Status Last Admin Dose Admin Ceftriaxone Sodium 1 gm/ Dextrose 55 ml @ 110 mls/hr Q24H IVPB 08/15/20 09:00 08/22/20 08:59 08/16/20 08:05 Dextrose (Dextrose 50%) 25 ml Q30M PRN IV Hypoglycemia 08/15/20 07:45 11/13/20 07:44 Dextrose (Dextrose 50%) 50 ml Q30M PRN IV Hypoglycemia 08/15/20 07:45 11/13/20 07:44 Iohexol (OMNIPAQUE-300 100ml) 100 ml NOW PRN INJ Radiology Procedure 08/14/20 22:30 08/16/20 22:20 Lorazepam (Ativan 2mg/ml 1ml) 1 mg Q3H PRN IV For Anxiety/Tremors 08/15/20 04:45 08/22/20 04:44 08/16/20 04:15 Magnesium Hydroxide (Mom) 30 ml HSPRN PRN ORAL Constipation 08/15/20 21:00 09/14/20 20:59 Metronidazole (Flagyl) 500 mg Q8HR ORAL 08/15/20 08:00 08/22/20 07:59 08/16/20 05:32 Morphine Sulfate (Morphine Sulfate) 2 mg Q3H PRN IVP Moderate Pain (Pain Scale 4-6) 08/15/20 04:15 08/22/20 04:14 Morphine Sulfate (Morphine Sulfate) 4 mg Q3H PRN IVP Severe Pain (Pain Scale 7-10) 08/15/20 04:15 08/22/20 04:14 08/16/20 04:16 Multivitamins (Multivitamins) 1 tab DAILY ORAL 08/15/20 09:00 09/14/20 08:59 08/16/20 08:04 Ondansetron HCl (Zofran) 4 mg Q4H PRN IVP Nausea & Vomiting 08/15/20 04:15 09/14/20 04:14 08/16/20 08:05 Pantoprazole (Protonix) 40 mg DAILY ORAL 08/15/20 09:00 09/14/20 08:59 08/16/20 08:04 Sitagliptin Phosphate (Januvia) 100 mg ACBREAKFAST ORAL 08/16/20 06:30 09/15/20 06:29 08/16/20 05:32 Tamsulosin HCl (Flomax) 0.4 mg BEDTIME ORAL 08/15/20 21:00 09/14/20 20:59 08/15/20 20:05 Temazepam (Restoril) 15 mg HSPRN PRN ORAL Insomnia 08/15/20 21:00 08/22/20 20:59 Lucius Mcmanus MD Aug 16, 2020 10:51
--- NOTE | 2020-08-16 12:03 | NUR ---
NURSE NOTES: Patient discharged AMA. Patient is AAOx4, ambulatory, on room air. Patient wanted to leave [facility] because patient feels much better. RN contact Dr. Derick Mcmanus regarding patient wish to be discharge, Per Dr. Mcmanus he will d/c patient when he sees him. Patient stated "i feel better now, i need to go because i have work at 1pm, i cant wait for the doctor" RN informed Dr. Derick Mcmanus that patient insists on leaving AMA, per Dr. Mcmanus patient may leave AMA. RN educated patient regarding AMA, that the hospital is not liable if anything were to happen to patient. RN discussed risk vs. benefit of signing AMA. patient aware and continue with signing of AMA form. IV site were removed, patient band removed. Belongings checked and signed with patient. Patient walked and left hospital by himself
--- NOTE | 2020-08-16 12:45 | NUR ---
AMA: SEE AMA FORM.
--- NOTE | 2020-08-17 13:32 | Discharge Summary ---
Discharge Summary Discharge Summary _ DATE OF ADMISSION: 08/14/2020 DATE OF DISCHARGE: 08/16/2020 DISCHARGED BY: Patient left AGAINST MEDICAL ADVICE 49 years old male REASON FOR ADMISSION: 49 years old male with past medical history diabetes mellitus, hypertension, CVA, ETOH abuse, was recently admitted to the hospital for alcoholic gastritis , stabilized and was sent home . Patient reported to continue drinking on a daily basis. Last drink was 24 hours prior to presentation to ED. Patient also reported abdominal pain in the right lower quadrant with radiation to the left side. He felt nauseated, but did not vomit. No diarrhea. He denied fever or chills. He denied chest pain, shortness of breath or palpitation. No back pain. Patient also reported mild dysuria , but no penile discharge. Upon evaluation patient was afebrile vital signs were stable. Laboratory work-up revealed no leukocytosis, stable hemoglobin, hematocrit and platelet count. Stable electrolytes. Glucose 275. AST 67 ALT 140. Lipase 177. Urinalysis revealed moderate bacteria, pyuria, +1 leukocyte esterase, +3 protein, +[address] scan of the abdomen and pelvis revealed diffuse fatty infiltration of the l iver. Gallbladder was unremarkable. No evidence of bowel obstruction. Enlarged prostate gland. Findings suggestive of mild or early inflammatory or infectious colitis of the descending colon extending to the sigmoid colon. In emergency department patient received liter of fluid, Librium, empiric antibiotic. Patient also received Pepcid , Bentyl , Toradol , Zofran. Patient received insulin. Patient subsequently admitted to medical surgical floor for further management. CONSULTANTS: GI specialist Dr. Lucius Mcmanus [facility] COURSE: Patient admitted to medical surgical floor . Patient was on IV hydration. and empiric antibiotic as per ID specialist recommendations. Patient started on full liquid diet . Patient started on PPI . Diet was further advanced to diabetic as tolerated. Pain management was addressed . Antiemetic provided as needed. At the time of this dictation blood culture preliminary negative. Rapid COVID-19 negative. Urine culture revealed gram-positive cocci , with colony count >100 K . Flomax continued. Blood sugar was managed with Januvia and sliding scale of insulin as needed. Patient was counseled on smoking cessation. On patient decided to leave AGAINST MEDICAL ADVICE. The risks and consequences of signing AGAINST MEDICAL ADVICE were discussed with patient in detail. Patient verbalized understanding, nevertheless signed AMA form and left. FINAL DIAGNOSES: Pyuria, likely UTI Early colitis Alcoholic fatty liver Alcoholic gastritis Alcoholic liver disease Alcohol abuse with dependency Diabetes mellitus Hypertension BPH I have been assigned to dictate discharge summary for this account. I was not involved in the patient's management. Bebe Amaya NP Aug 17, 2020 13:32
--- NOTE | 2020-08-17 21:49 | Cardiology Report ---
APPROVED REPORT EKG Measurement Heart [id number] <Conclusion> Normal sinus rhythm Normal ECG
== END 2020-08-16 12:02 | disposition left against medical advice (07) | DRG 392 ==
LOC: EMR 22:25 → 4E 08-15 01:24 → EDBEDREQ 08-15 02:21
DX: K52.9 Noninfective gastroenteritis and colitis, unspecified (principal); F10.239 Alcohol dependence with withdrawal, unspecified; N39.0 Urinary tract infection, site not specified; E11.9 Type 2 diabetes mellitus without complications; I10 Essential (primary) hypertension; Z86.73 Personal history of transient ischemic attack (TIA), and cerebral infarction without residual deficits; K70.0 Alcoholic fatty liver; K29.20 Alcoholic gastritis without bleeding; K70.9 Alcoholic liver disease, unspecified; N40.0 Benign prostatic hyperplasia without lower urinary tract symptoms
CPT/HCPCS: 36415; 74177; 80053; 80061; 81003; 82009; 82248; 82803; 83036; 83690; 84443; 85025; 87040; 87086; 93005; 96361; 96365; 96367; 96375; 96376; 99285; J2405; J7030; U0002

== ENCOUNTER 2020-09-02 18:07 | Emergency (ER) | payer BC, OTHER ==
[~2020-09-02] VITALS: Ht 167.6 cm; Wt 90.7 kg
[2020-09-02] MEDS ORDERED: Morphine Sulfate 4mg/ml Inj (IV USE ONLY) IVP ONE (18:45)
--- NOTE | 2020-09-02 18:46 | Emergency Room Report ---
History of Present Illness General Chief Complaint: Abdominal Pain Source: Patient Present Illness HPI Disclaimer: Please note that this report is being documented using [employer] technology. This can lead to erroneous entry secondary to incorrect interpretation by the dictating instrument. HPI: 49-year-old male history of diabetes and gastritis and colitis presenting for abdominal pain. He is a chronic drinker as well. He states he drank last night. Complains of epigastric abdominal pain in addition to lower abdominal pain. Associated nausea and vomiting. No diarrhea. No hematochezia. Patient has been seen multiple times in the past for the same Allergies: Coded Allergies: NO KNOWN ALLERGIES (Unverified Allergy, Unknown, 07/29/20) COVID-19 Screening Contact w/high risk pt: No Experienced COVID-19 symptoms?: No COVID-19 Testing performed COLLECTIONS REPRESENTATIVE: No Patient History Reviewed Nursing Documentation: PMH: Agreed; PSxH: Agreed Nursing Documentation-PMH Past Medical History Deferred: Pt Cognitively Impaired Past Medical History: No History, Except For Hx Cardiac Problems: No Hx Hypertension: Yes Hx Diabetes: Yes Hx Cancer: No Hx Gastrointestinal Problems: Yes History Of Psychiatric Problem: Yes - etoh abuse Hx Neurological Problems: No Hx Cerebrovascular Accident: Yes Hx Neurologic Surgery: No Review of Systems All Other Systems: negative except mentioned in HPI Physical Exam Vital Signs Date Time Temp Pulse Resp B/P (MAP) Pulse Ox O2 Delivery O2 Flow Rate FiO2 09/02/20 18:14 98.4 113 20 141/78 (99) 97 Room Air Sp02 EP Interpretation: reviewed, normal General Appearance: well appearing, no apparent distress Head: normocephalic, atraumatic Eyes: bilateral eye PERRL, bilateral eye EOMI ENT: hearing grossly normal, moist mucus membranes Neck: full range of motion, supple Respiratory: lungs clear, normal breath sounds, no rhonchi, no respiratory distress, no retraction, no wheezing Cardiovascular #1: normal peripheral pulses, no murmur, tachycardia Gastrointestinal: soft, non-distended, no guarding, tenderness - Epigastric and lower abdominal tenderness Neurologic: alert, oriented x3, no focal defects Skin: normal color, warm/dry Medical Decision Making Diagnostic Impression: Primary Impression: Abdominal pain Additional Impressions: Alcohol abuse Infectious colitis ER Course MDM: Differential diagnosis included but not limited to gastritis, gastroenteritis, pancreatitis, alcohol abuse, hydration to name a few Clinical course-IV fluids, Zofran, pain control given. Laboratory studies and CT scan ordered. Laboratory studies showed no leukocytosis, mild elevation of LFTs. Hemoglobin stable. CT scan completed and showed evidence of colitis similar to previous CT scan done here in the past month. Also evidence of probable esophagitis. Patient had been admitted for his colitis earlier in the month and left AGAINST MEDICAL ADVICE. He had no fever no active vomiting in the ER. Vital signs were stable. Heart rate improved after IV fluids. 1 mg was given for mild anxiety. At this time I do not believe patient requires admission as he was afebrile no leukocytosis with colitis noted I do believe he can be discharged on p.o. antibiotics. I instructed patient to avoid alcohol. Was discharged with Zofran as well. Return precautions were given. Labs - Laboratory Tests Test 09/02/20 18:30 09/02/20 19:42 White Blood Count 5.2 K/UL (4.8-10.8) Red Blood Count 5.05 M/UL (4.70-6.10) Hemoglobin 16.2 G/DL (14.2-18.0) Hematocrit 47.5 % (42.0-52.0) Mean Corpuscular Volume 94 FL (80-99) Mean Corpuscular Hemoglobin 32.1 PG (27.0-31.0) H Mean Corpuscular Hemoglobin Concent 34.1 G/DL (32.0-36.0) Red Cell Distribution Width 11.6 % (11.6-14.8) Platelet Count 282 K/UL (150-450) Mean Platelet Volume 6.0 FL (6.5-10.1) L Neutrophils (%) (Auto) 45.1 % (45.0-75.0) Lymphocytes (%) (Auto) 46.6 % (20.0-45.0) H Monocytes (%) (Auto) 6.0 % (1.0-10.0) Eosinophils (%) (Auto) 0.7 % (0.0-3.0) Basophils (%) (Auto) 1.6 % (0.0-2.0) Sodium Level 143 MMOL/L (136-145) Potassium Level 3.7 MMOL/L (3.5-5.1) Chloride Level 106 MMOL/L (98-107) Carbon Dioxide Level 22 MMOL/L (21-32) Anion Gap 15 mmol/L (5-15) Blood Urea Nitrogen 12 mg/dL (7-18) Creatinine 0.8 MG/DL (0.55-1.30) Estimated Glomerular Filtration Rate > 60 mL/min (>60) Glucose Level 253 MG/DL (74-106) H Calcium Level 8.5 MG/DL (8.5-10.1) Total Bilirubin 0.4 MG/DL (0.2-1.0) Aspartate Amino Transferase (AST) 60 U/L (15-37) H Alanine Aminotransferase (ALT) 106 U/L (12-78) H Alkaline Phosphatase 125 U/L (46-116) H Total Protein 8.2 G/DL (6.4-8.2) Albumin 4.0 G/DL (3.4-5.0) Globulin 4.2 g/dL Albumin/Globulin Ratio 1.0 (1.0-2.7) Lipase 189 U/L (73-393) Urine Color Pale yellow Urine Appearance Clear Urine pH 5 (4.5-8.0) Urine Specific [place] 1.025 (1.005-1.035) Urine Protein 3+ (NEGATIVE) H Urine Glucose (UA) 4+ (NEGATIVE) H Urine Ketones 1+ (NEGATIVE) H Urine Blood 1+ (NEGATIVE) H Urine Nitrite Negative (NEGATIVE) Urine Bilirubin Negative (NEGATIVE) Urine Urobilinogen Normal MG/DL (0.0-1.0) Urine Leukocyte Esterase Negative (NEGATIVE) Urine RBC 2-4 /HPF (0 - 0) H Urine WBC 0-2 /HPF (0 - 0) Urine Squamous Epithelial Cells None /LPF (NONE/OCC) Urine Bacteria Occasional /HPF (NONE) On reevaluation: Patient in no acute distress Plan-discharge home, pain control, p.o. antibiotics and Zofran recommended close follow-up with PMD. Return precautions were given. CT/MRI/US Diagnostic Results CT/MRI/US Diagnostic Results : Imaging Test Ordered: CT scan abdomen and pelvis Impression IMPRESSION: 1. Possible mild inflammatory or infectious colitis of the descending colon extending to the proximal sigmoid colon. 2. Fatty infiltration of the liver. 3. Possible esophagitis. 4. Gallbladder is unremarkable. 5. Minimal nonspecific stranding about the perinephric spaces without hydronephrosis. Similar findings are noted on the earlier study. 6. Status post appendectomy. 7. Moderate quantity of stool throughout the colon. 8. No bowel obstruction. 9. Enlarged prostate gland. Last Vital Signs Date Time Temp Pulse Resp B/P (MAP) Pulse Ox O2 Delivery O2 Flow Rate FiO2 09/02/20 18:14 98.4 113 20 141/78 (99) 97 Room Air Status: improved Disposition: HOME, SELF-CARE Condition: Improved Scripts Ondansetron (Zofran) 4 Mg Tablet 4 MG ORAL Q8H PRN for Nausea & Vomiting, #10 TAB 0 Refills Prov: Raffi Box M.D. 09/02/20 Acetaminophen* (TYLENOL EXTRA STRENGTH*) 500 Mg Tablet 500 MG ORAL Q8H PRN for For Pain, #30 TAB 0 Refills Prov: Raffi Box M.D. 09/02/20 Metronidazole* (FLAGYL*) 500 Mg Tablet 500 MG ORAL THREE TIMES A DAY, #21 TAB Prov: Raffi Box M.D. 09/02/20 Ciprofloxacin Hcl* (CIPROFLOXACIN HCL*) 500 Mg Tablet 500 MG ORAL Q12H, #14 TAB 0 Refills Prov: Raffi Box M.D. 09/02/20 Raffi Box M.D. Sep 02, 2020 18:46
[2020-09-02 18:48] LABS: BASOPHILS % (AUTO) 1.6 % (0.0-2.0); EOSINOPHILS % (AUTO) 0.7 % (0.0-3.0); HEMATOCRIT 47.5 % (42.0-52.0); HEMOGLOBIN 16.2 G/DL (14.2-18.0); LYMPHOCYTES % (AUTO) 46.6 % (20.0-45.0); MEAN CORPUSCULAR VOLUME 94 FL (80-99); NEUTROPHILS % (AUTO) 45.1 % (45.0-75.0); PLATELET COUNT 282 K/UL (150-450); RED BLOOD COUNT 5.05 M/UL (4.70-6.10); RED CELL DISTRIBUTION WIDTH 11.6 % (11.6-14.8); WHITE BLOOD COUNT 5.2 K/UL (4.8-10.8)
[2020-09-02 18:55] VITALS: BP 133/73
[2020-09-02 18:59] LABS: ANION GAP 15 mmol/L (5-15); BLOOD UREA NITROGEN 12 mg/dL (7-18); CALCIUM 8.5 MG/DL (8.5-10.1); CARBON DIOXIDE 22 MMOL/L (21-32); CHLORIDE 106 MMOL/L (98-107); CREATININE 0.8 MG/DL (0.55-1.30); POTASSIUM 3.7 MMOL/L (3.5-5.1); SODIUM 143 MMOL/L (136-145)
[2020-09-02 19:03] LABS: ALANINE AMINOTRANSFERASE 106 U/L (12-78); ALKALINE PHOSPHATASE 125 U/L (46-116); ASPARTATE AMINO TRANSFERASE 60 U/L (15-37); BILIRUBIN,TOTAL 0.4 MG/DL (0.2-1.0)
[2020-09-02] MEDS ORDERED: Dicyclomine HCl 10mg/5ml oral soln ORAL ONE (19:45)
[2020-09-02] MEDS ORDERED: Mylanta II UD 30ml ORAL ONE (19:45)
[2020-09-02] MEDS ORDERED: Lidocaine 2% Visc 15ml soln ORAL ONE (19:45)
--- NOTE | 2020-09-02 19:48 | Diagnostic Imaging Report ---
EXAM: CT Abdomen and Pelvis Without Intravenous Contrast CLINICAL HISTORY: PAIN TECHNIQUE: Axial computed tomography images of the abdomen and pelvis without intravenous contrast. CTDI is 7.5 mGy and DLP is 443 mGy-cm. One or more of the following dose reduction techniques were used: automated exposure control, adjustment of the mA and/or kV according to patient size, use of iterative reconstruction technique. COMPARISON: 08/15/2020. FINDINGS: Limitations: Limited evaluation of the viscera due to lack of intravenous contrast. Lung bases: Minimal presumed subsegmental atelectasis posteriorly at the lung bases. Pleural space: No pleural effusions. Mediastinum: Possible distal esophagitis. ABDOMEN: Liver: Diffuse fatty infiltration of the liver is noted. The liver and the spleen are normal in contour. Gallbladder and bile ducts: See below. Pancreas: See below. Spleen: See above. Adrenals: The adrenal glands, the head, body, tail of the pancreas, and the gallbladder are unremarkable. Kidneys and ureters: Nonspecific stranding about the perinephric spaces without hydronephrosis or renal calculus. Stomach and bowel: Presumed ingested material within the stomach. Moderate quantity of stool throughout the colon. No evidence of bowel obstruction. Mild distention of the mid sigmoid colon with stool. Possible minimal wall thickening of the descending colon extending to the sigmoid colon proximally. PELVIS: Appendix: Status post appendectomy. Bladder: Unremarkable. No stones. Reproductive: Prostate gland measures 4 x 5.6 cm and is mildly enlarged. ABDOMEN and PELVIS: Intraperitoneal space: Unremarkable. No free air. No significant fluid collection. Bones/joints: No spondylolysis or spondylolisthesis. The sacrum and coccyx are unremarkable. No acute fracture. No dislocation. Soft tissues: Ischiorectal fat is clean. Vasculature: Abdominal aorta is normal in caliber. Minimal atherosclerotic disease of the abdominal aorta is noted. Lymph nodes: No retroperitoneal lymphadenopathy. No pelvic or inguinal lymphadenopathy. Other findings: Elevation of the right hemidiaphragm. IMPRESSION: 1. Possible mild inflammatory or infectious colitis of the descending colon extending to the proximal sigmoid colon. 2. Fatty infiltration of the liver. 3. Possible esophagitis. 4. Gallbladder is unremarkable. 5. Minimal nonspecific stranding about the perinephric spaces without hydronephrosis. Similar findings are noted on the earlier study. 6. Status post appendectomy. 7. Moderate quantity of stool throughout the colon. 8. No bowel obstruction. 9. Enlarged prostate gland.
[2020-09-02] MEDS ORDERED: LORazepam Inj 2mg/ml 1ml IV ONE (20:00)
[2020-09-02 20:04] LABS: APPEARANCE,URINE CLEAR; BILIRUBIN, URINE NEGATIVE (NEGATIVE); COLOR,URINE PALE YELLOW; GLUCOSE, URINE (UA) 4+ (NEGATIVE); KETONES,URINE 1+ (NEGATIVE); LEUKOCYTE ESTERASE ,URINE NEGATIVE (NEGATIVE); NITRITE,URINE NEGATIVE (NEGATIVE); PH,URINE 5 (4.5-8.0); PROTEIN,URINE 3+ (NEGATIVE); UROBILINOGEN,URINE NORMAL MG/DL (0.0-1.0)
[2020-09-02 20:15] VITALS: BP 137/84
[2020-09-02] MEDS ORDERED: TYLENOL EXTRA500 MG ORAL (20:59)
[2020-09-02] MEDS ORDERED: ZOFRAN4 MG ORAL (20:59)
[2020-09-02] MEDS ORDERED: METRONIDAZOLE500 MG ORAL (20:59)
[2020-09-02] MEDS ORDERED: CIPROFLOXACIN500 M2 ORAL (20:59)
[2020-09-02] MEDS ORDERED: Ketorolac 30mg Inj IV ONE (21:00)
[2020-09-02 21:30] VITALS: BP 138/82
== END 2020-09-02 21:30 | disposition home or self-care (01) ==
LOC: EMR 18:25
DX: A09 Infectious gastroenteritis and colitis, unspecified (principal); F10.10 Alcohol abuse, uncomplicated; E11.9 Type 2 diabetes mellitus without complications; I10 Essential (primary) hypertension; Z86.73 Personal history of transient ischemic attack (TIA), and cerebral infarction without residual deficits; R11.2 Nausea with vomiting, unspecified; K76.0 Fatty (change of) liver, not elsewhere classified; N40.0 Benign prostatic hyperplasia without lower urinary tract symptoms; Z90.89 Acquired absence of other organs
CPT/HCPCS: 36415; 74176; 80053; 81003; 83690; 85025; 96361; 96374; 96375; 99284; J1885; J2270; J2405; J7030

== ENCOUNTER 2020-09-04 21:51 | Emergency (ER) | payer BC, OTHER ==
[~2020-09-04] VITALS: Ht 167.6 cm; Wt 93.9 kg
[~2020-09-04 21:51] MED LIST changes: +CIPROFLOXACIN500 M2 ORAL; +METRONIDAZOLE500 MG ORAL; +ZOFRAN4 MG ORAL
[2020-09-04 22:15] VITALS: BP 126/88
[2020-09-04] MEDS ORDERED: Mylanta II UD 30ml ORAL ONE (22:30)
[2020-09-04] MEDS ORDERED: Dicyclomine HCl 10mg/5ml oral soln ORAL ONE (22:30)
[2020-09-04] MEDS ORDERED: LORazepam Inj 2mg/ml 1ml IV ONE (22:30)
[2020-09-04] MEDS ORDERED: Lidocaine 2% Visc 15ml soln ORAL ONE (22:30)
[2020-09-04 22:47] LABS: BILIRUBIN, URINE NEGATIVE (NEGATIVE); GLUCOSE, URINE (UA) 4+ (NEGATIVE); KETONES,URINE 1+ (NEGATIVE); LEUKOCYTE ESTERASE ,URINE 2+ (NEGATIVE); NITRITE,URINE NEGATIVE (NEGATIVE); PH,URINE 6 (4.5-8.0); PROTEIN,URINE 2+ (NEGATIVE); UROBILINOGEN,URINE NORMAL MG/DL (0.0-1.0)
[2020-09-04 22:50] LABS: APPEARANCE,URINE SLIGHTLY CLOUDY; COLOR,URINE YELLOW
[2020-09-04] MEDS ORDERED: Ketorolac 30mg Inj IV ONE (23:30)
[2020-09-04 23:44] LABS: BASOPHILS % (AUTO) 1.1 % (0.0-2.0); EOSINOPHILS % (AUTO) 0.8 % (0.0-3.0); HEMOGLOBIN 15.1 G/DL (14.2-18.0); LYMPHOCYTES % (AUTO) 25.8 % (20.0-45.0); MEAN CORPUSCULAR VOLUME 88 FL (80-99); MONOCYTES % (AUTO) 5.5 % (1.0-10.0); NEUTROPHILS % (AUTO) 66.8 % (45.0-75.0); PLATELET COUNT 228 K/UL (150-450); RED BLOOD COUNT 4.64 M/UL (4.70-6.10); RED CELL DISTRIBUTION WIDTH 11.1 % (11.6-14.8); WHITE BLOOD COUNT 4.3 K/UL (4.8-10.8)
[2020-09-04 23:56] LABS: ANION GAP 12 mmol/L (5-15); BLOOD UREA NITROGEN 9 mg/dL (7-18); CALCIUM 7.6 MG/DL (8.5-10.1); CARBON DIOXIDE 23 MMOL/L (21-32); CHLORIDE 105 MMOL/L (98-107); CREATININE 0.8 MG/DL (0.55-1.30); POTASSIUM 3.7 MMOL/L (3.5-5.1); SODIUM 140 MMOL/L (136-145)
[2020-09-05 00:01] LABS: ALANINE AMINOTRANSFERASE 110 U/L (12-78); ALBUMIN 3.5 G/DL (3.4-5.0); ALBUMIN/GLOBULIN RATIO 0.9 (1.0-2.7); ALKALINE PHOSPHATASE 96 U/L (46-116); ASPARTATE AMINO TRANSFERASE 79 U/L (15-37); BILIRUBIN,TOTAL 0.5 MG/DL (0.2-1.0)
[2020-09-05 00:15] VITALS: BP 117/97
[2020-09-05] MEDS ORDERED: FAMOTIDINE20 MG ORAL (00:59)
[2020-09-05] MEDS ORDERED: LIBRIUM25 MG ORAL (00:59)
[2020-09-05] MEDS ORDERED: ONDANSETRON ODT4 MG BC (00:59)
[2020-09-05] MEDS ORDERED: Metoclopramide 10mg/2ml Inj IVP ONE (01:15)
[2020-09-05 01:35] VITALS: BP 138/100
--- NOTE | 2020-09-05 02:06 | Emergency Room Report ---
History of Present Illness General Chief Complaint: Abdominal Pain Source: Patient Present Illness HPI 49-year-old male presents for abdominal pain with vomiting. Symptoms started this morning. States that pain is epigastric, burning, 7 out of 10, nonradiating. History of gastritis. States that he drinks alcohol. States his last drink was yesterday. States he is also shaking. Denies drug use. Denies chest pain. No other aggravating relieving factors. 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 Patient History Past Medical History: DM, HTN, CVA/TIA Past Surgical History: none Pertinent Family History: none Social History: Reports: alcohol use; Denies: smoking, drug use Immunizations: UTD Reviewed Nursing Documentation: PMH: Agreed; PSxH: Agreed Nursing Documentation-PMH Hx Cardiac Problems: No Hx Hypertension: Yes Hx Diabetes: Yes Hx Cancer: No Hx Gastrointestinal Problems: Yes Hx Neurological Problems: No Hx Cerebrovascular Accident: Yes Hx Neurologic Surgery: No Review of Systems All Other Systems: negative except mentioned in HPI Physical Exam Vital Signs Date Time Temp Pulse Resp B/P (MAP) Pulse Ox O2 Delivery O2 Flow Rate FiO2 09/04/20 21:55 98.1 110 18 126/88 (101) 97 Room Air Sp02 EP Interpretation: reviewed, normal General Appearance: no apparent distress, alert, GCS 15, non-toxic Head: normocephalic, atraumatic Eyes: bilateral eye normal inspection, bilateral eye PERRL ENT: hearing grossly normal, normal pharynx, no angioedema, normal voice Neck: full range of motion, supple/symm/no masses Respiratory: chest non-tender, lungs clear, normal breath sounds, speaking full sentences Cardiovascular #1: regular rate, rhythm, no edema Cardiovascular #2: 2+ carotid (R), 2+ carotid (L), 2+ radial (R), 2+ radial (L), 2+ dorsalis pedis (R), 2+ dorsalis pedis (L) Gastrointestinal: normal bowel sounds, non tender, soft, non-distended, no guarding, no rebound Rectal: deferred Genitourinary: normal inspection, no CVA tenderness Musculoskeletal: back normal, normal range of motion, gait/station normal, non- tender Neurologic: alert, motor strength/tone normal, oriented x3, sensory intact, responsive, speech normal Psychiatric: judgement/insight normal, memory normal, mood/affect normal, no suicidal/homicidal ideation Reflexes: 3+ bicep (R), 3+ bicep (L), 3+ tricep (R), 3+ tricep (L), 3+ knee (R), 3+ knee (L) Lymphatic: no adenopathy Procedures Critical Care Time Critical Care Time i. I feel this is a highly complex case requiring extensive working including EKG/Rhythm strip, Xray/CT/US, Blood/urine lab work, repeat exams while in ED, and administration of strong opiates/narcotics for pain control, admission to hospital or close patient follow up. Total time: 30 min bedside evaluation and treatment excludes procedures (EKG). Reason for critical care: alcohol withdrawal, tachycardia Possible complications: hypotension, hypertension, ID, shock, arrhythmias, metabolic acidosis, end organ damage, respiratory failure. Interventions: Labs, IV fluids, Ativan, Pepcid, Zofran, Reglan Course: Patient presenting with vomiting. History of gastritis. Last drink yesterday. Tachycardic on monitor. Given fluids, Ativan, Pepcid, GI cocktail. Tachycardia resolved. Patient less tremulous after Ativan. Consultations: nursing staff, EMS, family Performed by: Dr Maya Tolerated well condition = stable j. because of unstable vital signs this patient had a condition that could potentially threaten life or limb. I feel this is a critical patient who required my full attention while patient was considered critical. Total Critical Care Time excluding procedures was greater than 35 minutes Medical Decision Making Diagnostic Impression: Primary Impression: Gastritis Qualified Codes: K29.20 - Alcoholic gastritis without bleeding Additional Impression: Alcohol withdrawal Qualified Codes: F10.239 - Alcohol dependence with withdrawal, unspecified ER Course Hospital Course 49-year-old M presents to ED with epigastric pain with N/V. History of alcohol use differential diagnosis: gastritis, SBO, cholecystits Clinical course Patient placed on stretcher. 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 After initial history and physical I ordered labs, IV fluids, Zofran, pepcid, GI cocktail Labs - no leukocytosis, no electrolyte abnormalities, LFTs normal, After IV hydration, Ativan, medications tachycardia resolved. Patient appears less tremulous. Discussed findings with patient. Continues to have nausea but no vomiting. Will discharge home with medications. Safe for discharge with close outpatient follow-up. I will provide referrals I feel this is a highly complex case requiring extensive working including EKG/Rhythm strip, Xray/CT/US, Blood/urine lab work, repeat exams while in ED, and administration of strong opiates/narcotics for pain control, admission to hospital or close patient follow up. Diagnosis - gastritis, alcohol withdrawal Stable and discharged to home with prescriptions for pepcid, zofran, libirum. Followup with PMD. Return to ED if symptoms recur or worsen Laboratory Tests Test 09/04/20 22:20 09/04/20 23:30 Urine Color Yellow Urine Appearance Slightly cloudy Urine pH 6 (4.5-8.0) Urine Specific [place] 1.015 (1.005-1.035) Urine Protein 2+ (NEGATIVE) H Urine Glucose (UA) 4+ (NEGATIVE) H Urine Ketones 1+ (NEGATIVE) H Urine Blood 1+ (NEGATIVE) H Urine Nitrite Negative (NEGATIVE) Urine Bilirubin Negative (NEGATIVE) Urine Urobilinogen Normal MG/DL (0.0-1.0) Urine Leukocyte Esterase 2+ (NEGATIVE) H Urine RBC 2-4 /HPF (0 - 0) H Urine WBC 15-20 /HPF (0 - 0) H Urine Squamous Epithelial Cells Occasional /LPF Urine Bacteria Moderate /HPF (NONE) H White Blood Count 4.3 K/UL (4.8-10.8) L Red Blood Count 4.64 M/UL (4.70-6.10) L Hemoglobin 15.1 G/DL (14.2-18.0) Hematocrit 41.0 % (42.0-52.0) L Mean Corpuscular Volume 88 FL (80-99) Mean Corpuscular Hemoglobin 32.4 PG (27.0-31.0) H Mean Corpuscular Hemoglobin Concent 36.8 G/DL (32.0-36.0) H Red Cell Distribution Width 11.1 % (11.6-14.8) L Platelet Count 228 K/UL (150-450) Mean Platelet Volume 5.3 FL (6.5-10.1) L Neutrophils (%) (Auto) 66.8 % (45.0-75.0) Lymphocytes (%) (Auto) 25.8 % (20.0-45.0) Monocytes (%) (Auto) 5.5 % (1.0-10.0) Eosinophils (%) (Auto) 0.8 % (0.0-3.0) Basophils (%) (Auto) 1.1 % (0.0-2.0) Sodium Level 140 MMOL/L (136-145) Potassium Level 3.7 MMOL/L (3.5-5.1) Chloride Level 105 MMOL/L (98-107) Carbon Dioxide Level 23 MMOL/L (21-32) Anion Gap 12 mmol/L (5-15) Blood Urea Nitrogen 9 mg/dL (7-18) Creatinine 0.8 MG/DL (0.55-1.30) Estimat Glomerular Filtration Rate > 60 mL/min (>60) Glucose Level 192 MG/DL (74-106) H Calcium Level 7.6 MG/DL (8.5-10.1) L Total Bilirubin 0.5 MG/DL (0.2-1.0) Aspartate Amino Transf (AST/SGOT) 79 U/L (15-37) H Alanine Aminotransferase (ALT/SGPT) 110 U/L (12-78) H Alkaline Phosphatase 96 U/L (46-116) Total Protein 7.3 G/DL (6.4-8.2) Albumin 3.5 G/DL (3.4-5.0) Globulin 3.8 g/dL Albumin/Globulin Ratio 0.9 (1.0-2.7) L Lipase 261 U/L (73-393) Last Vital Signs Date Time Temp Pulse Resp B/P (MAP) Pulse Ox O2 Delivery O2 Flow Rate FiO2 09/05/20 01:35 98.1 88 22 138/100 98 Room Air Status: improved Disposition: HOME, SELF-CARE Condition: Stable Scripts Chlordiazepoxide (Chlordiazepoxide HCl) 25 Mg Capsule 25 MG ORAL THREE TIMES A DAY, #15 CAP 0 Refills Prov: Waldemar Maya MD 09/05/20 Ondansetron Odt* (ZOFRAN ODT*) 4 Mg Tab.rapdis 4 MG BC EVERY 6 HOURS PRN for Nausea & Vomiting, #10 TAB 0 Refills Prov: Waldeamr Maya MD 09/05/20 Famotidine* (Pepcid 20mg tablet*) 20 Mg Tablet 20 MG ORAL DAILY for Gerd, #30 TAB 0 Refills Prov: Waldemar Maya MD 09/05/20 [facility] Patient Instructions: Alcohol Intoxication, Jcts-nd-Xmop Waldemar Maya MD Sep 05, 2020 02:06
[2020-09-06] MEDS ORDERED: FAMOTIDINE20 MG ORAL (16:26)
[2020-09-06] MEDS ORDERED: ZOFRAN4 M1 ORAL (16:26)
== END 2020-09-05 01:35 | disposition home or self-care (01) ==
LOC: EMR 22:15
DX: K29.20 Alcoholic gastritis without bleeding (principal); F10.239 Alcohol dependence with withdrawal, unspecified; E11.9 Type 2 diabetes mellitus without complications; Z86.73 Personal history of transient ischemic attack (TIA), and cerebral infarction without residual deficits; I10 Essential (primary) hypertension
CPT/HCPCS: 36415; 80053; 81003; 83690; 85025; 87086; 96361; 96374; 96375; 96376; 99291; J1885; J2405; J2765; J7030; S0028

== ENCOUNTER 2020-09-06 13:29 | Inpatient (IN) | payer BC, OTHER ==
[~2020-09-06] VITALS: Ht 167.6 cm; Wt 91.3 kg
[~2020-09-06 13:29] MED LIST changes: +FAMOTIDINE20 MG ORAL; +ONDANSETRON ODT4 MG BC
[2020-09-06 13:45] VITALS: BP 148/85
--- NOTE | 2020-09-06 13:56 | NUR ---
ED Nurse Note: Patient walked in to ER from home due to vomit and abdominal pain since last night. pt noticed blood in vomit since this morning. per pt, he drinks about 7 bottles of beer everyday and last drink was last night and also 7 bottles. pt aao x4 and ambulatory. calm but grimacing for pain. actively retching at this time. no cardiac or pulmonary distress at this time. pt is tachycardia due to retching. no cough or fever noted at this time.
[2020-09-06] MEDS ORDERED: Ketorolac 30mg Inj IV ONE ×2 (14:00→15:45)
[2020-09-06 14:08] LABS: BASOPHILS % (AUTO) 2.5 % (0.0-2.0); EOSINOPHILS % (AUTO) 0.7 % (0.0-3.0); HEMATOCRIT 45.3 % (42.0-52.0); HEMOGLOBIN 16.1 G/DL (14.2-18.0); LYMPHOCYTES % (AUTO) 28.8 % (20.0-45.0); MEAN CORPUSCULAR VOLUME 90 FL (80-99); PLATELET COUNT 222 K/UL (150-450); RED BLOOD COUNT 5.02 M/UL (4.70-6.10); RED CELL DISTRIBUTION WIDTH 11.5 % (11.6-14.8); WHITE BLOOD COUNT 7.2 K/UL (4.8-10.8)
[2020-09-06 14:20] LABS: ANION GAP 23 mmol/L (5-15); BLOOD UREA NITROGEN 6 mg/dL (7-18); CALCIUM 8.5 MG/DL (8.5-10.1); CARBON DIOXIDE 17 MMOL/L (21-32); CHLORIDE 99 MMOL/L (98-107); POTASSIUM 3.4 MMOL/L (3.5-5.1); SODIUM 139 MMOL/L (136-145)
[2020-09-06 14:25] LABS: ALANINE AMINOTRANSFERASE 108 U/L (12-78); ALBUMIN 4.1 G/DL (3.4-5.0); ALKALINE PHOSPHATASE 132 U/L (46-116); ASPARTATE AMINO TRANSFERASE 89 U/L (15-37); BILIRUBIN,TOTAL 0.9 MG/DL (0.2-1.0)
--- NOTE | 2020-09-06 14:41 | NUR ---
ED Nurse Note: pt sleeping soundly without s/s of distress in bed.
[2020-09-06 14:43] VITALS: BP 124/75
--- NOTE | 2020-09-06 15:10 | NUR ---
ED Nurse Note: pt urinated in urinal. urine sample sent to lab.
--- NOTE | 2020-09-06 15:36 | NUR ---
ED Nurse Note: pt c/o abdominal pain and nausea recurring. ERPA made aware.
[2020-09-06] MEDS ORDERED: chlordiazePOXIDE 25mg Cap ORAL ONE (15:45)
[2020-09-06 16:04] LABS: APPEARANCE,URINE SLIGHTLY CLOUDY; BILIRUBIN, URINE NEGATIVE (NEGATIVE); GLUCOSE, URINE (UA) 4+ (NEGATIVE); KETONES,URINE 3+ (NEGATIVE); LEUKOCYTE ESTERASE ,URINE 1+ (NEGATIVE); NITRITE,URINE NEGATIVE (NEGATIVE); PH,URINE 5 (4.5-8.0); PROTEIN,URINE 3+ (NEGATIVE); UROBILINOGEN,URINE NORMAL MG/DL (0.0-1.0)
[2020-09-06 16:08] LABS: COLOR,URINE YELLOW
--- NOTE | 2020-09-06 16:25 | Emergency Room Report ---
History of Present Illness General Chief Complaint: Abdominal Pain Source: Patient Present Illness HPI 49-year-old male with history of alcohol abuse who has been here multiple times here complaining diffuse abdominal pain a few bouts of bloody emesis in the past 2 days. Patient reports that yesterday he started drinking 7 beers. Denies any drug use. Denies chest pain or shortness of breath and headache and dizziness. Denies any trauma. Denies any diarrhea constipation. Has not taken medication for symptom relief. Blood has been noticed in the vomit. Patient was last seen at [facility] in September, treated for alcohol intoxication and discharged. Patient was also seen September 02, CT abdomen was done and was diagnosed with infectious colitis however has not been compliant with taking medication that was prescribed to him. Patient appears to be tachycardic with heart rate of 131 upon arrival rest of vital signs within normal limits. Patient reports that he has not drank today. 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 Patient History Past Medical History: see triage record Past Surgical History: unable to obtain Pertinent Family History: unable to obtain Social History: Reports: alcohol use Reviewed Nursing Documentation: PMH: Agreed; PSxH: Agreed Nursing Documentation-PM Past Medical History: No History, Except For Hx Cardiac Problems: No Hx Hypertension: Yes Hx Diabetes: Yes Hx Cancer: No Hx Gastrointestinal Problems: Yes Hx Neurological Problems: No Hx Cerebrovascular Accident: Yes Hx Neurologic Surgery: No Review of Systems All Other Systems: negative except mentioned in HPI Physical Exam Vital Signs Date Time Temp Pulse Resp B/P (MAP) Pulse Ox O2 Delivery O2 Flow Rate FiO2 09/06/20 13:37 98.1 132 18 148/85 (106) 98 Room Air Sp02 EP Interpretation: reviewed, abnormal - Elevated heart rate General Appearance: alert, moderate distress, other - Intoxicated Head: normocephalic, atraumatic Eyes: bilateral eye normal inspection, bilateral eye PERRL ENT: hearing grossly normal, normal pharynx, no angioedema, normal voice Neck: full range of motion, supple Respiratory: normal inspection, chest non-tender, lungs clear, normal breath sounds, no rhonchi, no respiratory distress, no retraction Cardiovascular #1: regular rate, rhythm, no edema Cardiovascular #2: 2+ carotid (R), 2+ carotid (L), 2+ radial (R), 2+ radial (L), 2+ dorsalis pedis (R), 2+ dorsalis pedis (L) Gastrointestinal: normal bowel sounds, non tender, soft, no mass, no organomegaly, no peritonitis, no bruit, non-distended, no guarding, no hernia, no pulsatile mass, no rebound Rectal: deferred Genitourinary: no CVA tenderness Musculoskeletal: back normal, no calf tenderness Neurologic: alert, motor strength/tone normal, oriented x3, sensory intact, responsive, speech normal Psychiatric: judgement/insight normal, memory normal, mood/affect normal, no suicidal/homicidal ideation Skin: no rash Lymphatic: no adenopathy Medical Decision Making PA Attestation All my diagnosis and treatment plans were reviewed ad discussed with my supervising physician Dr. Abarca Diagnostic Impression: Primary Impression: Hematemesis Additional Impression: Alcohol abuse ER Course 49-year-old male with history of alcohol abuse who has been here multiple times here complaining diffuse abdominal pain a few bouts of bloody emesis in the past 2 days. Patient reports that yesterday he started drinking 7 beers. Denies any drug use. Denies chest pain or shortness of breath and headache and dizziness. Denies any trauma. Denies any diarrhea constipation. Has not taken medication for symptom relief. Blood has been noticed in the vomit. Patient was last seen at [facility] in September, treated for alcohol intoxication and discharged. Patient was also seen September 02, CT abdomen was done and was diagnosed with infectious colitis however has not been compliant with taking medication that was prescribed to him. Patient appears to be tachycardic with heart rate of 131 upon arrival rest of vital signs within normal limits. Patient reports that he has not drank today. Ddx considered but are not limited to: Upper GI bleed, lower GI bleed, appendicitis, cholecystis, gastritis, pancreatitis, SBO, Ddx considered but are not limited to: Alcohol intoxication with altered level of consciousness, alcohol intoxication causing pancreatitis, alcohol abuse, multi drug use and alcohol intoxication Vital signs: are WNL, pt. is afebrile H&PE are most consistent with: GI bleed, alcohol abuse ORDERS: CBC, CMP, UA, tox screen, blood alcohol serum level, lipase, ER intervention: NS bolus, Librium, Zofran, Phenergan, Toradol, Pepcid Patient was admitted with diagnosis of GI bleed, alcohol intoxication to Dr. Mcmanus under supervision of Dr.: Abarca pt stable at time of admission EKG Diagnostic Results Rate: tachycardiac Rhythm: other - tachy ST Segments: no acute changes Other Impression No acute ST changes ASA given to the pt in ED: No Last Vital Signs Date Time Temp Pulse Resp B/P (MAP) Pulse Ox O2 Delivery O2 Flow Rate FiO2 09/06/20 14:43 98.1 91 18 124/75 98 Room Air Disposition: ADMITTED INPATIENT Condition: Serious Referrals: NOT CHOSEN IPA/MD,REFERRING (PCP) Evin Pino Sep 06, 2020 16:24
[2020-09-06] MEDS ORDERED: FAMOTIDINE20 MG ORAL (16:26)
[2020-09-06] MEDS ORDERED: ZOFRAN4 M1 ORAL (16:26)
--- NOTE | 2020-09-06 16:34 | NUR ---
ED Nurse Note: pt was about to be discharged. However, pt expressed dizziness, weakness, and tremor still present and he is worried. ERPA at bedside assessing pt.
--- NOTE | 2020-09-06 16:40 | NUR ---
ED Nurse Note: pt will be admitted. pt informed and agreed with it.
[2020-09-06 16:58] VITALS: BP 142/81
--- NOTE | 2020-09-06 17:01 | NUR ---
ED Nurse Note: Patient sleeping in bed, semi-carroll position. No N/V or tremor noted.
[2020-09-06] MEDS ORDERED: LORazepam Inj 2mg/ml 1ml IV ONE (17:30)
--- NOTE | 2020-09-06 18:20 | NUR ---
ED Nurse Note: report given to KIKA Lancaster. room is not ready. Tonny will call when the room is ready.
--- NOTE | 2020-09-06 18:25 | NUR ---
NURSE NOTES: received report from KIKA Lopez. Room is not ready, Pt to be brought up when bed is ready.
[2020-09-06] MEDS ORDERED: Miralax 17gm pkt ORAL PRN (19:00)
[2020-09-06] MEDS ORDERED: LORazepam 1mg tab ORAL PRN (19:00)
[2020-09-06] MEDS ORDERED: Morphine Sulfate 2mg/ml Inj(IV/IM USE ONLY) IVP PRN (19:00)
--- NOTE | 2020-09-06 19:00 | NUR ---
NURSE NOTES: Report given Colette ANAND.
--- NOTE | 2020-09-06 19:06 | NUR ---
ED Nurse Note: report given to KIKA Andino.
[2020-09-06 19:08] VITALS: BP 131/74
--- NOTE | 2020-09-06 19:08 | NUR ---
ED Nurse Note: received report from Javier martinez RN. Pt is calm in bed. vss, nad, aaox4. tachy of 110
--- NOTE | 2020-09-06 19:10 | NUR ---
TRANSFER TO FLOOR: Patient transferred to [facility] via [facility] in stable condition as ordered, per dr. Mcmanus. Report given to Sugar ANAND. Belongings sent with patient
--- NOTE | 2020-09-06 19:30 | NUR ---
NURSE NOTES: ADMITTED 49 YEAR OLD MALE TO ROOM 206 BED 2 [facility] FROM EMERGENCY DEPARTMENT VIA [facility]. PATIENT AWAKE, ALERT/ORIENTED X4, VERBALLY RESPONSIVE, ADMITTING DIAGNOSIS GIB, UNDER THE CARE OF DR. Mauri PARDO. PATIENT WITH CURRENT COMPLAINT OF ABDOMINAL PAIN/9/10/SHARP/CONTINUOUS. IV INTACT TO RIGHT WRIST, GAUGE 20, NO REDNESS/SWELLING NOTED TO SITE. NO SIGNS AND SYMPTOMS OF ACUTE CARDIO RESPIRATORY DISTRESS/SHORTNESS OF BREATH, DENIES CHEST PAIN, NO PERIPHERAL EDEMA NOTED. ABDOMEN SOFT/NON DISTENDED/AUDIBLE BOWEL SOUNDS/TENDER TO TOUCH RIGHT LOWER QUADRANT. ORIENTATED PATIENT TO ROOM/ENVIRONMENT. FALL PRECAUTIONS OBSERVED SECONDARY TO NARCOTIC USAGE; SIDE RAILS UP X3, BED IN LOWEST POSITION FOR SAFETY, BED ALARM ACTIVATED. ENCOURAGED PATIENT TO UTILIZE CALL LIGHT FOR ASSISTANCE, VERBALIZED UNDERSTANDING. NAD.
[2020-09-06 20:00] VITALS: BP 152/87
[2020-09-06] MEDS: Pantoprazole Inj IV SCH (20:31)
[2020-09-06] MEDS: D5W w/KCl 20mEq 1,000 ML IV SCH (20:35)
[2020-09-06] MEDS: Morphine Sulfate 4mg/ml Inj (IV USE ONLY) IVP PRN (20:38)
--- NOTE | 2020-09-06 23:54 | General Progress Note ---
Subjective Allergies: Coded Allergies: NO KNOWN ALLERGIES (Unverified Allergy, Unknown, 07/29/20) Objective Last 24 Hour Vital Signs Date Time Temp Pulse Resp B/P (MAP) Pulse Ox O2 Delivery O2 Flow Rate FiO2 09/06/20 21:18 Room Air 09/06/20 21:08 100.0 09/06/20 20:00 100.0 112 18 152/87 (108) 96 09/06/20 19:10 98.3 110 18 131/74 100 Room Air 09/06/20 19:08 98.3 110 18 131/74 100 Room Air 09/06/20 18:03 96 18 127/74 100 09/06/20 17:33 107 18 122/45 100 09/06/20 16:58 104 24 142/81 99 Room Air 09/06/20 16:18 98.1 09/06/20 14:43 98.1 91 18 124/75 98 Room Air 09/06/20 14:34 98.1 09/06/20 13:45 98.1 125 22 148/85 98 Room Air 09/06/20 13:45 127 22 Room Air 09/06/20 13:37 98.1 132 18 148/85 (106) 98 Room Air Laboratory Tests 09/06/20 13:50: White Blood Count 7.2, Red Blood Count 5.02, Hemoglobin 16.1, Hematocrit 45.3, Mean Corpuscular Volume 90, Mean Corpuscular Hemoglobin 32.1H, Mean Corpuscular Hemoglobin Concent 35.6, Red Cell Distribution Width 11.5L, Platelet Count 222, Mean Platelet Volume 5.3L, Neutrophils (%) (Auto) 62.0, Lymphocytes (%) (Auto) 28.8, Monocytes (%) (Auto) 6.0, Eosinophils (%) (Auto) 0.7, Basophils (%) (Auto) 2.5H, Sodium Level 139, Potassium Level 3.4L, Chloride Level 99, Carbon Dioxide Level 17L, Anion Gap 23H, Blood Urea Nitrogen 6L, Creatinine 1.0, Estimat Glomerular Filtration Rate > 60, Glucose Level 247H, Calcium Level 8.5, Total Bilirubin 0.9, Aspartate Amino Transf (AST/SGOT) 89H, Alanine Aminotransferase (ALT/SGPT) 108H, Alkaline Phosphatase 132H, Troponin I 0.000, Total Protein 8.3H , Albumin 4.1, Globulin 4.2, Albumin/Globulin Ratio 1.0, Lipase 291, Serum Alcohol 132 09/06/20 15:30: Urine Color Yellow, Urine Appearance Slightly cloudy, Urine pH 5, Urine Specific [place] 1.020, Urine Protein 3+H, Urine Glucose (UA) 4+H, Urine Ketones 3+H, Urine Blood 3+H, Urine Nitrite Negative, Urine Bilirubin Negative, Urine Urobilinogen Normal, Urine Leukocyte Esterase 1+H, Urine RBC 0, Urine WBC 2-4, Urine Squamous Epithelial Cells Occasional, Urine Bacteria Occasional, Urine Mucus FewH, Urine Opiates Screen Negative, Urine Barbiturates Screen Negative, Phencyclidine (PCP) Screen Negative, Urine Amphetamines Screen Negative, Urine Benzodiazepines Screen Negative, Urine Cocaine Screen Negative, Urine Marijuana (THC) Screen Negative 09/06/20 16:33: POC Whole Blood Glucose [Pending] Height (Feet): 5 Height (Inches): 6.00 Weight (Pounds): 208 Assessment/Plan Assessment/Plan: Assesment - EtOH abuse - Recurrent EtOH gastritis - Alcohol withdrawal syndrome - likely alcohol hepatitis Recommendations - supportive care - IVF - PPI - BDZ - Thiamine, MVI, Folate - stop EtOH Thank you MD Devora Lozoya Payman MD Sep 06, 2020 23:54
[2020-09-07] VITALS: BP 139/90
--- NOTE | 2020-09-07 01:00 | Consultation ---
DATE OF CONSULTATION: 09/06/2020 GASTROENTEROLOGY CONSULTATION REPORT CONSULTING PHYSICIAN: Rhett Lozoya MD. CHIEF COMPLAINT: I was asked to see this patient by Dr. Derick Mcmanus for evaluation of abdominal issues. HISTORY OF PRESENT ILLNESS: The patient is a 49-year-old man with a longstanding history of alcohol abuse who has had multiple hospitalizations in the same format who comes in with a 2 to 3 day history of nausea, vomiting, and abdominal discomfort. He had some streaks of blood in his emesis, but he is not anemic. The patient has been drinking excessively up to 7 years ago plus some hard liquor. He has had multiple admissions with similar presentation where he has been diagnosed with alcoholic gastritis and gets better with conservative management. The CT scan of the abdomen was done showing some colonic thickening, but no significant diarrhea has been reported. PAST MEDICAL HISTORY: History of alcoholic gastritis. FAMILY HISTORY: Noncontributory. SOCIAL HISTORY: Patient has had excessive alcohol abuse as described. REVIEW OF SYSTEMS: Otherwise negative. PHYSICAL EXAMINATION: GENERAL: Well-developed, well-nourished man, seen in his room. HEENT: Normocephalic and atraumatic. Sclerae anicteric. Oropharynx clear. NECK: Supple. CHEST: Clear to auscultation. CARDIOVASCULAR: Revealed a regular rate. ABDOMEN: Soft. EXTREMITIES: No edema. NEUROLOGIC: Notable for tremor and withdrawal syndrome. LABORATORY DATA: Noted. ASSESSMENT: This patient presents with chronic alcohol abuse, recurrent hospitalizations with alcoholic gastritis. This is another typical admission for this patient and he was a strongly advised to discontinue alcohol consumption permanently. For the time being, his treatment should be conservative and supportive with IV fluids, multivitamin, thiamine, folate, and proton pump inhibitor as well as antiemetic. Should there be a significant drop in his blood count or further bleeding, then endoscopy can be considered. Otherwise, he had these episodes before and he should respond to conservative management. RECOMMENDATIONS: Per above discussion and per orders written in the chart. Thank you for asking me to participate in the care of this patient. Rhett Lozoya M.D. DR: CARLEY JOB#: [id number] CC:
[2020-09-07] MEDS: Morphine Sulfate 4mg/ml Inj (IV USE ONLY) IVP PRN ×5 (01:33→18:51)
[2020-09-07 04:00] VITALS: BP 130/82
[2020-09-07 06:36] LABS: BASOPHILS % (AUTO) 0.8 % (0.0-2.0); HEMATOCRIT 40.5 % (42.0-52.0); HEMOGLOBIN 14.4 G/DL (14.2-18.0); LYMPHOCYTES % (AUTO) 23.6 % (20.0-45.0); MEAN CORPUSCULAR VOLUME 91 FL (80-99); MONOCYTES % (AUTO) 4.6 % (1.0-10.0); PLATELET COUNT 180 K/UL (150-450); RED BLOOD COUNT 4.46 M/UL (4.70-6.10); RED CELL DISTRIBUTION WIDTH 11.2 % (11.6-14.8); WHITE BLOOD COUNT 5.9 K/UL (4.8-10.8)
--- NOTE | 2020-09-07 06:59 | NUR ---
NURSE HAND-OFF REPORT: Important Events on Shift:[COMPLAINT OF ABDOMINAL PAIN X2, LAST MEDICATED WITH MS 4MG AT 0133,COMPLAINED OF NAUSEA X1, MEDICATED WITH ZOFRAN 4MG IV AT 0133] Patient Status: [STABLE, AFEBRILE] Diet: [FULL LIQUID STARTING 09/07 ] Pending Orders: [CBC] Pending Results/Labs:N/A Pending MD notification:[] Latest Vital Signs: Temperature 98.4 , Pulse 81 , B/P 130 /82 , Respiratory Rate 16 , O2 SAT 95 , Room Air, O2 Flow Rate . Vital Sign Comment: [STABLE, AFEBRILE] EKG Rhythm: Sinus Rhythm Rhythm change?: N MD Notified?: -N/A MD Response: Latest Vanessa Fall Score: 45 Fall Risk: High Risk Safety Measures: Call light Within Reach, Bed Alarm Zone 2, Side Rails Side Rails x2, Bed position Low and Locked. Fall Precautions: Yellow Socks Yellow Gown Door Sign Patient Fall Education Report given to [KIKA ZAMUDIO].
--- NOTE | 2020-09-07 07:12 | NUR ---
NURSE NOTES: Received report from Tonia Bledsoe RN. Patient sitting up in bed, awake and alert, watching television, on room air, c/o abdominal pain, and some tremors. Bed in lowest position, call light within reach.
[2020-09-07 08:00] VITALS: BP_SYST 105; BP_SYST 137; BP_DIAS 40; BP_DIAS 79
[2020-09-07] MEDS: Thiamine 100mg tab ORAL SCH (08:41)
[2020-09-07] MEDS: Pantoprazole Inj IV SCH (08:41)
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
[2020-09-07] MEDS: D5W w/KCl 20mEq 1,000 ML IV SCH ×2 (11:09→22:40)
[2020-09-07 12:00] VITALS: BP 156/92
[2020-09-07] MEDS: LORazepam 1mg tab ORAL PRN ×3 (12:27→21:08)
--- NOTE | 2020-09-07 12:38 | History & Physical ---
History and Physical History & Physicial [facility] [id number] Derick Mcmanus MD Sep 07, 2020 12:38
--- NOTE | 2020-09-07 13:30 | History and Physical Report ---
DATE OF ADMISSION: 09/06/2020 CHIEF COMPLAINT: Abdominal pain and vomiting. HISTORY OF PRESENT ILLNESS: This is a 49-year-old male with history of multiple admissions for alcohol abuse. Basically, he usually gets nausea, vomiting, abdominal pain. At this time, he comes in with the same complaints, vomiting with some blood in the emesis. The patient was told to stop drinking alcohol during his last two admissions but he still continues to drink alcohol, hard liquor as well as beers. PAST MEDICAL HISTORY: History of alcoholic gastritis, also during one of his admissions there was suspicion of colitis. He has hypertension. MEDICATIONS: Reviewed in EMR. 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 History of alcohol abuse. No history of smoking. REVIEW OF SYSTEMS: As above. PHYSICAL EXAMINATION: GENERAL: The patient is a 49-year-old male in no acute distress. He said his pain is actually better, but he gets anxiety attacks from withdrawals. VITAL SIGNS: Blood pressure is 107/45, pulse 78, respiratory rate 18, and temperature 97.9. HEENT: [place] conjunctivae. Anicteric sclerae. NECK: Supple. LUNGS: Clear to auscultation. HEART: S1 and S2 without murmurs or rubs. ABDOMEN: Soft, somewhat distended, diffusely tender. EXTREMITIES: No cyanosis or edema. LABORATORY FINDINGS: CBC shows a WBC of 5900, hematocrit 40.5, hemoglobin is 14.4, and platelets 180,000. Chemistry panel shows a serum sodium 139, potassium 3.4, chloride 99, carbon dioxide 17, BUN 6, creatinine 1, calcium is 8.5. UA was positive for 3+ protein, 4+ glucose, 3+ ketones, and 3+ blood. Urine does not show any rbc's, only 2 to 4 wbc's per high-power field. ASSESSMENT: This is a 49-year-old male with history of alcohol abuse. He was admitted with nausea and vomiting. There is some blood in the vomitus. Diagnosis of GI bleed, possibly erosive gastritis from alcohol. PLAN: The patient was started on liquid diet. He will be on IV Protonix. Antiemetics will be prescribed as well as pain medication, also Ativan to prevent withdrawal symptoms. He usually gets shaky. Laboratories will be followed and further adjustment will be made in the patient's regimen. Derick Mcmanus M.D. DR: Ольга JOB#: [id number] CC: ROBYN
--- NOTE | 2020-09-07 14:36 | NUR ---
INSURANCE CLINICALS FAXED TO [phone] JOSE
--- NOTE | 2020-09-07 15:08 | NUR ---
CASE MANAGEMENT: REVIEW 49 YEAR OLD MALE PRESENTED TO ED FROM HOME CC: ABD PAIN . hx ALCOHOLIC GASTRITIS SI: ALCOHOL WITHDRAWAL T 100.0 HR 112 RR 18 BP 152/87 SAT 96% ROOM AIR K 3.4 GLUCOSE 247 AST 89 ALT 108 ALK PHOS 132 IS: ATIVAN IV X1 NS IVF BOLUS X1 PHENERGAN IV X1 PEPCID IV X1 TORADOL IV X1 LIBRIUM PO X1 ALCOHOL WITHDRAWAL PRECAUTIONS PATIENT ADMITTED TO TELEMETRY UNIT 09/06/2020 DCP: PATIENTS OF FROM HOME
--- NOTE | 2020-09-07 15:59 | Cardiology Report ---
APPROVED REPORT EKG Measurement Heart [id number] <Conclusion> Sinus tachycardia Otherwise normal ECG
[2020-09-07 16:00] VITALS: BP 120/61
[2020-09-07] MEDS: NovoLOG Insulin Flexpen SUBQ SCH ×2 (17:25→21:00)
--- NOTE | 2020-09-07 17:54 | NUR ---
TRANSFER TO FLOOR: Patient transferred to 4E, per MD. Report given to Ed Alvarez RN. Belongings and medications given to Ed Alvarez RN. Family and or S/O informed of transfer.
--- NOTE | 2020-09-07 17:58 | NUR ---
NURSES NOTE: Receives pt from telemetry floor alert and awake. no acute distress noted. made pt comfortable in the room. place call light within reach, will follow plan of care.
--- NOTE | 2020-09-07 19:25 | NUR ---
NURSE NOTES: Report received from Ed ANAND. Pt. is awake, alert and verbally responsive. Breathing even and unlabored. With complains of abdominal pain but was just given prn meds, slowly improving as verbalized by pt. Bed is in it's lowest position, with alarm on and locked. With call light within reach. Will continue with plan of care.
--- NOTE | 2020-09-07 19:25 | NUR ---
HANDS OFF: Report given to Brandon.
[2020-09-07 20:00] VITALS: BP 138/87
--- NOTE | 2020-09-07 20:40 | General Progress Note ---
Subjective Allergies: Coded Allergies: NO KNOWN ALLERGIES (Unverified Allergy, Unknown, 07/29/20) Subjective Better still with mild epigastric pain Objective Last 24 Hour Vital Signs Date Time Temp Pulse Resp B/P (MAP) Pulse Ox O2 Delivery O2 Flow Rate FiO2 09/07/20 16:00 98.8 59 20 120/61 (80) 96 09/07/20 15:37 99.9 09/07/20 15:03 76 17 140/55 97 09/07/20 14:33 76 17 144/57 97 09/07/20 12:57 77 17 145/55 97 09/07/20 12:37 99.9 09/07/20 12:27 78 18 107/45 100 09/07/20 12:00 97.9 79 17 156/92 (113) 95 09/07/20 12:00 80 09/07/20 10:04 Room Air 09/07/20 09:13 99.9 09/07/20 09:11 78 17 106/42 100 09/07/20 08:41 78 20 105/40 100 09/07/20 08:00 97.6 107 19 137/79 (98) 95 09/07/20 08:00 115 09/07/20 04:00 98.4 81 16 130/82 (98) 95 09/07/20 03:32 85 09/07/20 02:03 99.4 09/07/20 00:00 99.4 99 16 139/90 (106) 96 09/06/20 23:29 100 09/06/20 21:18 Room Air 09/06/20 21:08 100.0 Intake and Output 09/06/20 09/07/20 19:00 07:00 Intake Total 1000 ml 810 ml Balance 1000 ml 810 ml Intake Oral 0 ml 60 ml IV Total 1000 ml 750 ml # Voids 3 # Bowel Movements 1 Laboratory Tests 09/07/20 05:53: POC Whole Blood Glucose [Pending] 09/07/20 06:07: White Blood Count 5.9, Red Blood Count 4.46L, Hemoglobin 14.4, Hematocrit 40.5L, Mean Corpuscular Volume 91, Mean Corpuscular Hemoglobin 32.3H, Mean Corpuscular Hemoglobin Concent 35.6, Red Cell Distribution Width 11.2L, Platelet Count 180, Mean Platelet Volume 6.2L, Neutrophils (%) (Auto) 69.0, Lymphocytes (%) (Auto) 23.6, Monocytes (%) (Auto) 4.6, Eosinophils (%) (Auto) 2.0, Basophils (%) (Auto) 0.8, Hemoglobin A1c 9.8H 09/07/20 11:58: POC Whole Blood Glucose [Pending] Height (Feet): 5 Height (Inches): 6.00 Weight (Pounds): 194 Objective WDWN NCAT supple CTA RRR abd soft no edema Assessment/Plan Assessment/Plan: Assesment - EtOH abuse - Recurrent EtOH gastritis - Alcohol withdrawal syndrome - likely alcohol hepatitis Recommendations - supportive care - IVF - PPI - BDZ - Thiamine, MVI, Folate - stop EtOH Rhett Lozoya MD Sep 07, 2020 20:39
[2020-09-08] VITALS: BP 138/86
[2020-09-08] MEDS: Morphine Sulfate 4mg/ml Inj (IV USE ONLY) IVP PRN ×3 (00:13→08:33)
--- NOTE | 2020-09-08 00:58 | NUR ---
Pain relieved by prn meds. BS checked, coverage given. With continued complains of nausea, prn meds given and verbalized relief. Able to void freely. On conitnued ivf, infusing well. Slept at intervals. Kept warm and comfortable at all times. Will continue to monitor.
[2020-09-08 04:00] VITALS: BP 140/82
[2020-09-08] MEDS: NovoLOG Insulin Flexpen SUBQ SCH ×2 (05:45→12:11)
--- NOTE | 2020-09-08 06:25 | NUR ---
No untoward signs of shaking noted. Pt. complains of severe abdominal pain, prn meds given and verbalized relief.Mostly awake at night, no shaking, no n/v noted. BS checked, refused coverage. Will contniue with plan of care.
[2020-09-08] MEDS: LORazepam 1mg tab ORAL PRN ×2 (06:37→11:02)
--- NOTE | 2020-09-08 07:11 | NUR ---
NURSE HAND-OFF: Important Events on Shift:pain mngt; etoh withdrawal mngt. Patient Status: Diet: Full liquid progress to Regular Pending Orders: Pending Results/Labs: Pending MD notification: Latest Vital Signs: Temperature 98.6 , Pulse 75 , B/P 129 /75 , Respiratory Rate 20 , O2 SAT 96 , Room Air, O2 Flow Rate . Vital Sign Comment: Latest Vanessa Fall Score: 35 Fall Risk: Medium Risk Safety Measures: Call light Within Reach, Bed Alarm Zone 2, Side Rails Side Rails x2, Bed position Low and Locked. Fall Precautions: Yellow Socks Yellow Gown Door Sign Patient Fall Education Report given to Ed ANAND.
[2020-09-08 08:00] VITALS: BP 118/86
--- NOTE | 2020-09-08 08:00 | NUR ---
NURSE NOTES: pt is alert and awake in the bed eating breakfast, tolerates meal well. HOB elevated. no acute distress noted. call light is within reach, will follow plan of care.
[2020-09-08] MEDS: Thiamine 100mg tab ORAL SCH (08:34)
[2020-09-08] MEDS: Pantoprazole Inj IV SCH (08:34)
--- NOTE | 2020-09-08 08:59 | NUR ---
CASE MANAGEMENT: REVIEW SI: ALCOHOL WITHDRAWAL . MILD EPIGASTRIC PAIN T 98.0 HR 98 RR 18 BP 118/86 SAT 97% ROOM AIR GLUCOSE 175 IS: D5W w/KCl 20MEQ IVF @ 75ML/HR PROTONIX IV QD FULL LIQUID DIET ADVANCE TOLERATED ALCOHOL WITHDRAWAL PRECAUTIONS MED/SURG STATUS DCP: PATIENTS OF FROM HOME
[2020-09-08 12:00] VITALS: BP 125/83
[2020-09-08] MEDS: D5W w/KCl 20mEq 1,000 ML IV SCH (12:00)
--- NOTE | 2020-09-08 12:08 | General Progress Note ---
Subjective Allergies: Coded Allergies: NO KNOWN ALLERGIES (Unverified Allergy, Unknown, 07/29/20) Subjective minimal pain now tolerating po Objective Last 24 Hour Vital Signs Date Time Temp Pulse Resp B/P (MAP) Pulse Ox O2 Delivery O2 Flow Rate FiO2 09/08/20 11:02 98 18 118/86 97 09/08/20 09:00 Room Air 09/08/20 08:00 98.0 98 18 118/86 (97) 97 09/08/20 07:07 75 20 129/75 96 09/08/20 06:37 78 18 126/71 95 09/08/20 04:02 98.6 09/08/20 04:00 98.6 92 17 140/82 (101) 97 09/08/20 00:43 97.9 09/08/20 00:00 98.2 89 16 138/86 (103) 97 09/07/20 21:38 97 19 129/75 97 09/07/20 21:08 96 17 138/87 98 09/07/20 21:00 Room Air 09/07/20 20:00 97.9 96 17 138/87 (104) 98 09/07/20 16:00 98.8 59 20 120/61 (80) 96 09/07/20 15:37 99.9 09/07/20 15:03 76 17 140/55 97 09/07/20 14:33 76 17 144/57 97 09/07/20 12:57 77 17 145/55 97 09/07/20 12:37 99.9 09/07/20 12:27 78 18 107/45 100 Intake and Output 09/07/20 09/08/20 19:00 07:00 Intake Total 825 ml 780 ml Balance 825 ml 780 ml Intake Oral 780 ml IV Total 825 ml # Voids 3 Laboratory Tests 09/07/20 22:04: POC Whole Blood Glucose 233H 09/08/20 05:40: POC Whole Blood Glucose 175H 09/08/20 11:43: POC Whole Blood Glucose 224H Height (Feet): 5 Height (Inches): 6.00 Weight (Pounds): 194 Objective WDWN NCAT supple CTA RRR abd soft no edema Assessment/Plan Assessment/Plan: Assesment - EtOH abuse - Recurrent EtOH gastritis - Alcohol withdrawal syndrome - likely alcohol hepatitis Recommendations - supportive care - IVF - PPI - BDZ - Thiamine, MVI, Folate - stop EtOH - ok for DC Rhett Lozoya MD Sep 08, 2020 12:08
[2020-09-08] MEDS ORDERED: FAMOTIDINE20 MG ORAL (13:11)
--- NOTE | 2020-09-08 13:14 | General Progress Note ---
Subjective Allergies: Coded Allergies: NO KNOWN ALLERGIES (Unverified Allergy, Unknown, 07/29/20) Subjective better Objective Last 24 Hour Vital Signs Date Time Temp Pulse Resp B/P (MAP) Pulse Ox O2 Delivery O2 Flow Rate FiO2 09/08/20 12:00 98.2 94 17 125/83 (97) 97 09/08/20 11:32 98 18 118/86 97 09/08/20 11:02 98 18 118/86 97 09/08/20 09:00 Room Air 09/08/20 08:00 98.0 98 18 118/86 (97) 97 09/08/20 07:07 75 20 129/75 96 09/08/20 06:37 78 18 126/71 95 09/08/20 04:02 98.6 09/08/20 04:00 98.6 92 17 140/82 (101) 97 09/08/20 00:43 97.9 09/08/20 00:00 98.2 89 16 138/86 (103) 97 09/07/20 21:38 97 19 129/75 97 09/07/20 21:08 96 17 138/87 98 09/07/20 21:00 Room Air 09/07/20 20:00 97.9 96 17 138/87 (104) 98 09/07/20 16:00 98.8 59 20 120/61 (80) 96 09/07/20 15:37 99.9 09/07/20 15:03 76 17 140/55 97 09/07/20 14:33 76 17 144/57 97 Intake and Output 09/07/20 09/08/20 19:00 07:00 Intake Total 825 ml 780 ml Balance 825 ml 780 ml Intake Oral 780 ml IV Total 825 ml # Voids 3 Laboratory Tests 09/07/20 22:04: POC Whole Blood Glucose 233H 09/08/20 05:40: POC Whole Blood Glucose 175H 09/08/20 11:43: POC Whole Blood Glucose 224H Height (Feet): 5 Height (Inches): 6.00 Weight (Pounds): 194 Cardiovascular: normal rate Respiratory/Chest: lungs clear Assessment/Plan Problem List: (1) Abdominal pain ICD Codes: R10.9 - Unspecified abdominal pain SNOMED: 99579102 (2) Gastritis ICD Codes: K29.70 - Gastritis SNOMED: 4022786 (3) DM (diabetes mellitus) ICD Codes: E11.9 - Type 2 diabetes mellitus without complications SNOMED: 22792775 (4) Upper GI bleed ICD Codes: K92.2 - Gastrointestinal hemorrhage, unspecified SNOMED: 62521945 Assessment/Plan: Dc today pt states he has Pepcid at home follow WITH PMD Derick Mcmanus MD Sep 08, 2020 13:14
--- NOTE | 2020-09-08 13:50 | NUR ---
NURSE NOTES: Pt is d/c home. awake and alert, oriented x 4. no SOB noted. denies any chest pain and discomfort. provided with discharge teaching, pt verbalized understanding. skin is intact, warm and dry to touch. pt signs inventory paper and discharge paper.escorted pt to the lobby. pt said he is going home by bus. no acute distress noted upon discharge.
--- NOTE | 2020-09-08 14:05 | NUR ---
POST DC NOTE SW attempted to meet w/ pt to initiate substance abuse rehab interview this morning but he was sleeping and did not respond. SW was informed that pt has been discharged this afternoon. Pt was provided w/ substance abuse rehab resource yesterday.
--- NOTE | 2020-09-08 17:19 | NUR ---
INSURANCE [employer]INICALS/REVIEW/ DC INSTRUCTIONS FAXED TO [facility] [phone] JOSE
--- NOTE | 2020-09-09 12:52 | Discharge Summary ---
Discharge Summary Discharge Summary _ DATE OF ADMISSION: 09/06/2020 DATE OF DISCHARGE: 09/08/2020 DISCHARGED BY: Dr. Derick Mcmanus REASON FOR ADMISSION: 49 years old male with past medical history of alcoholic gastritis, possible colitis, hypertension, had multiply prior admissions for alcohol abuse. He came to emergency department with abdominal pain ,nausea and vomiting. Noted blood in the emesis. Patient was counseled prior on ETOH cessation , however he continued drinking alcohol: hard liquor as well as beers. Upon evaluation patient was tachycardic with heart rate 132 , pulse oximetry was stable on room air. EKG revealed sinus tachycardia, no acute ischemic changes. Laboratory work-up revealed no leukocytosis , stable hemoglobin and hematocrit. Potassium 3.4. BUN 6, creatinine 1.0. Glucose 247. AST 89, ALT 108. Troponin negative urine toxicology screen negative , serum alcohol 132. Urinalysis revealed no evidence of urinary tract infection. In emergency department patient received normal saline bolus along with Librium , Zofran, Phenergan, Toradol ,and Pepcid . Patient subsequently admitted to medical surgical floor for further management. CONSULTANTS: GI specialist Dr. Lozoya [facility] COURSE: Patient admitted to medical surgical floor. Patient was continued on IV fluids and started on clear liquids diet. Patient started on PPI with IV Protonix. Symptomatic treatment provided. Antiemetic provided as needed for nausea. Pain management was addressed as needed. Patient started on thiamine , multivitamin and folate. Patient received Ativan as needed for withdrawal symptoms. Patient was counseled on alcohol cessation. Diabetic diet and diabetic teaching provided. Hemoglobin A1c -9.8. Patient will need further optimization of anti-glycemic regimen as outpatient. Patient was counseled on compliance with diabetic diet and medications as outpatient. Hemoglobin and hematocrit remained stable ; prior to discharge hemoglobin 14.4 , hematocrit 40.5. No need for inpatient GI procedure at this time. Diet was advanced as tolerated, and he was able to tolerate diet. Patient clinically stabilized and was ready for discharge home. FINAL DIAGNOSES: Recurrent ETOH gastritis Abdominal pain ETOH abuse Diabetes mellitus Likely alcoholic hepatitis Alcohol withdrawal syndrome Possible upper GI bleeding DISCHARGE MEDICATIONS: See Medication Reconciliation list. DISCHARGE INSTRUCTIONS: Patient was discharged home. Follow-up with a primary care provider in 1 week. Patient was counseled on abstinence from ETOH. I have been assigned to dictate discharge summary for this account. I was not involved in the patient's management. Bebe Amaya NP Sep 09, 2020 12:52
[2020-09-09] MEDS ORDERED: ONDANSETRON ODT4 MG BC (16:17)
[2020-09-09] MEDS ORDERED: MAALOX MAXIMUM355 M1 PO (16:17)
== END 2020-09-08 13:50 | disposition home or self-care (01) | DRG 378 ==
LOC: EMR 14:11 → 2E 17:00 → EDBEDREQ 18:09 → 4E 09-07 17:38
DX: K29.21 Alcoholic gastritis with bleeding (principal); F10.139 Alcohol abuse with withdrawal, unspecified; K70.10 Alcoholic hepatitis without ascites; E11.9 Type 2 diabetes mellitus without complications
CPT/HCPCS: 36415; 80053; 80307; 81003; 82962; 83036; 83690; 84484; 85025; 93005; 96361; 96374; 96375; 96376; 99285; G0480; J1815; J2405; J7030

== ENCOUNTER → 2020-09-09 | Emergency (ER) | payer BC, OTHER ==
[~2020-09-09] VITALS: Ht 167.6 cm; Wt 92.5 kg
[~2020-09-09] MED LIST changes: +Dicyclomine HCl 10mg/5ml oral soln ORAL ONE; +Lidocaine 2% Visc 15ml soln ORAL ONE; +MAALOX MAXIMUM355 M1 PO; +Mylanta II UD 30ml ORAL ONE; +ZOFRAN4 M1 ORAL; +chlordiazePOXIDE 25mg Cap ORAL ONE
--- NOTE | 2020-09-09 15:20 | NUR ---
ED Nurse Note: Pt walked in to ED c/o abdominal pain x2 weeks. [place] [facility] Reports nausea/ vomiting, shakiness. No fever. Pt is AOx4, calm and cooperative to care. Per pt, last etoh intake was 2 weeks ago. Pt's VSS, on RA, afebrile on triage.
--- NOTE | 2020-09-09 15:27 | NUR ---
ED Nurse Note: ERMD at bedside
[2020-09-09 15:30] VITALS: BP 145/98
--- NOTE | 2020-09-09 15:32 | Emergency Room Report ---
History of Present Illness General Chief Complaint: Abdominal Pain Source: Patient Present Illness HPI Disclaimer: Please note that this report is being documented using [employer] technology. This can lead to erroneous entry secondary to incorrect interpretation by the dictating instrument. HPI: This a 49-year-old male history of alcohol abuse recurrent gastritis discharged from this hospital yesterday for vomiting and dehydration presenting with abdominal cramping. Patient states he has not had a drink in several days. He has not picked up his antacids, nausea medication from his previous visits. He had been previously prescribed Librium as well but is not taking this. He states he needs something for shaking. Denies seizures, loss of consciousness, chest pain, palpitations. He reports vomiting earlier today but cannot quantify how many times. Denies hematemesis. 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 COVID-19 Screening: Negative COVID-19 COVID-19 Testing Source: unk Nursing Documentation-PMH Hx Cardiac Problems: Yes Hx Hypertension: Yes Hx COPD: Yes Hx Diabetes: Yes - HYPERGLYCEMIA Hx Cancer: No Hx Gastrointestinal Problems: Yes Hx Neurological Problems: Yes Hx Cerebrovascular Accident: Yes - 2017 Hx Weakness: Yes Hx Neurologic Surgery: No Review of Systems All Other Systems: negative except mentioned in HPI Physical Exam Vital Signs Date Time Temp Pulse Resp B/P (MAP) Pulse Ox O2 Delivery O2 Flow Rate FiO2 09/09/20 15:15 98.2 78 19 145/98 (114) 98 Room Air General: Awake and alert, no acute distress HEENT: NC/AT. EOMI. Cardiovascular: RRR. S1 and S2 normal. No murmur appreciated Resp: Normal work of breathing. No cough, wheezing or crackles appreciated Abdomen: Abdomen is soft, nondistended. Diffusely tender to palpation particularly in the epigastric region. No guarding. No masses. Skin: Intact. No abrasions, laceration or rash over the exposed skin MSK: Normal tone and bulk. Moving all extremities. No obvious deformity. Neuro: Awake and alert. Mentating appropriately. No tremors. Medical Decision Making ER Course 49-year-old male recently discharged for recurrent gastritis with a history of alcohol abuse presents for evaluation of abdominal pain and vomiting. Differential includes is not limited to gastritis, gastroenteritis, pancreatitis, hepatitis, intoxication, esophagitis, bowel obstruction, EtOH withdrawal among others. He is in no acute distress and arrives with stable vital signs. No tremors, reports feeling agitated. Patient treated with IV fluids, Zofran, 1 dose of Librium in the ED. Labs returned largely within normal ins aside from elevated LFTs as previously demonstrated. Glucose slightly elevated but no sign of DKA. Toxicology positive for benzodiazepines only, serum alcohol negative. Urinalysis does not appear infectious. No vomiting in the ED. Patient tolerating p.o. Encouraged him to stay on a liquid diet until he feels better. Represcribed Pepcid and Zofran. He is stable for outpatient follow-up. Instructed to return new or worsening symptoms and to see primary care clinic as soon as possible. He understands and agrees with this treatment plan. Laboratory Tests Test 09/09/20 15:58 White Blood Count 6.7 K/UL (4.8-10.8) Red Blood Count 4.77 M/UL (4.70-6.10) Hemoglobin 15.7 G/DL (14.2-18.0) Hematocrit 44.9 % (42.0-52.0) Mean Corpuscular Volume 94 FL (80-99) Mean Corpuscular Hemoglobin 32.9 PG (27.0-31.0) H Mean Corpuscular Hemoglobin Concent 35.0 G/DL (32.0-36.0) Red Cell Distribution Width 11.8 % (11.6-14.8) Platelet Count 173 K/UL (150-450) Mean Platelet Volume 6.7 FL (6.5-10.1) Neutrophils (%) (Auto) 84.2 % (45.0-75.0) H Lymphocytes (%) (Auto) 8.8 % (20.0-45.0) L Monocytes (%) (Auto) 5.6 % (1.0-10.0) Eosinophils (%) (Auto) 0.4 % (0.0-3.0) Basophils (%) (Auto) 0.9 % (0.0-2.0) Urine Color Yellow Urine Appearance Clear Urine pH 7 (4.5-8.0) Urine Specific [place] 1.005 (1.005-1.035) Urine Protein 2+ (NEGATIVE) H Urine Glucose (UA) 4+ (NEGATIVE) H Urine Ketones 3+ (NEGATIVE) H Urine Blood Negative (NEGATIVE) Urine Nitrite Negative (NEGATIVE) Urine Bilirubin Negative (NEGATIVE) Urine Urobilinogen 4 MG/DL (0.0-1.0) H Urine Leukocyte Esterase Negative (NEGATIVE) Urine RBC 0-2 /HPF (0 - 0) H Urine WBC 0-2 /HPF (0 - 0) Urine Squamous Epithelial Cells Occasional /LPF Urine Bacteria Few /HPF (NONE) Sodium Level 133 MMOL/L (136-145) L Potassium Level 3.6 MMOL/L (3.5-5.1) Chloride Level 99 MMOL/L (98-107) Carbon Dioxide Level 24 MMOL/L (21-32) Anion Gap 10 mmol/L (5-15) Blood Urea Nitrogen 9 mg/dL (7-18) Creatinine 0.9 MG/DL (0.55-1.30) Estimated Glomerular Filtration Rate > 60 mL/min (>60) Glucose Level 319 MG/DL (74-106) H Calcium Level 9.0 MG/DL (8.5-10.1) Total Bilirubin 0.9 MG/DL (0.2-1.0) Aspartate Amino Transferase (AST) 131 U/L (15-37) H Alanine Aminotransferase (ALT) 142 U/L (12-78) H Alkaline Phosphatase 121 U/L (46-116) H Total Protein 7.5 G/DL (6.4-8.2) Albumin 4.0 G/DL (3.4-5.0) Globulin 3.5 g/dL Albumin/Globulin Ratio 1.1 (1.0-2.7) Lipase 217 U/L (73-393) Urine Opiates Screen Negative (NEGATIVE) Urine Barbiturates Screen Negative (NEGATIVE) Phencyclidine (PCP) Screen Negative (NEGATIVE) Urine Amphetamines Screen Negative (NEGATIVE) Urine Benzodiazepines Screen Positive (NEGATIVE) H Urine Cocaine Screen Negative (NEGATIVE) Urine Marijuana (THC) Screen Negative (NEGATIVE) Serum Alcohol < 3 mg/dL Last Vital Signs Date Time Temp Pulse Resp B/P (MAP) Pulse Ox O2 Delivery O2 Flow Rate FiO2 09/09/20 15:15 98.2 78 19 145/98 (114) 98 Room Air Disposition: HOME, SELF-CARE Condition: Stable Scripts Mag Hydrox/Al Hydrox/Simeth (MAALOX MAXIMUM STRENGTH SUSP) 355 Ml Oral.susp 355 ML PO BID for 5 Days, #1 BAG Prov: Smith Boone MD 09/09/20 Ondansetron Odt* (ZOFRAN ODT*) 4 Mg Tab.rapdis 4 MG BC EVERY 6 HOURS PRN for Nausea & Vomiting, #20 TAB 0 Refills Prov: Smith Boone MD 09/09/20 Smith Boone MD Sep 09, 2020 15:32
[2020-09-09 16:13] LABS: APPEARANCE,URINE CLEAR; BILIRUBIN, URINE NEGATIVE (NEGATIVE); GLUCOSE, URINE (UA) 4+ (NEGATIVE); KETONES,URINE 3+ (NEGATIVE); LEUKOCYTE ESTERASE ,URINE NEGATIVE (NEGATIVE); NITRITE,URINE NEGATIVE (NEGATIVE); PH,URINE 7 (4.5-8.0); PROTEIN,URINE 2+ (NEGATIVE); UROBILINOGEN,URINE 4 MG/DL (0.0-1.0)
[2020-09-09 16:16] LABS: BASOPHILS % (AUTO) 0.9 % (0.0-2.0); COLOR,URINE YELLOW; EOSINOPHILS % (AUTO) 0.4 % (0.0-3.0); HEMATOCRIT 44.9 % (42.0-52.0); HEMOGLOBIN 15.7 G/DL (14.2-18.0); LYMPHOCYTES % (AUTO) 8.8 % (20.0-45.0); MEAN CORPUSCULAR VOLUME 94 FL (80-99); MONOCYTES % (AUTO) 5.6 % (1.0-10.0); NEUTROPHILS % (AUTO) 84.2 % (45.0-75.0); PLATELET COUNT 173 K/UL (150-450); RED BLOOD COUNT 4.77 M/UL (4.70-6.10); RED CELL DISTRIBUTION WIDTH 11.8 % (11.6-14.8); WHITE BLOOD COUNT 6.7 K/UL (4.8-10.8)
[2020-09-09 16:31] LABS: ANION GAP 10 mmol/L (5-15); BLOOD UREA NITROGEN 9 mg/dL (7-18); CARBON DIOXIDE 24 MMOL/L (21-32); CHLORIDE 99 MMOL/L (98-107); CREATININE 0.9 MG/DL (0.55-1.30); POTASSIUM 3.6 MMOL/L (3.5-5.1); SODIUM 133 MMOL/L (136-145)
[2020-09-09 16:35] LABS: ALANINE AMINOTRANSFERASE 142 U/L (12-78); ALBUMIN/GLOBULIN RATIO 1.1 (1.0-2.7); ALKALINE PHOSPHATASE 121 U/L (46-116); ASPARTATE AMINO TRANSFERASE 131 U/L (15-37); BILIRUBIN,TOTAL 0.9 MG/DL (0.2-1.0)
[2020-09-09 17:09] VITALS: BP 138/96
--- NOTE | 2020-09-09 17:09 | NUR ---
ER DISCHARGE NOTE: Patient is cleared to be discharged per ERMD, pt is aox4, on room air, with stable vital signs. pt was given dc and prescription instructions, pt was able to verbalize understanding, pt id band and iv site removed without complications. pt is able to ambulate with steady gait. pt took all belongings.
== END | disposition home or self-care (01) ==
LOC: EMR 15:40
DX: R10.9 Unspecified abdominal pain (principal); R11.10 Vomiting, unspecified; I10 Essential (primary) hypertension; J44.9 Chronic obstructive pulmonary disease, unspecified; E11.9 Type 2 diabetes mellitus without complications; Z86.73 Personal history of transient ischemic attack (TIA), and cerebral infarction without residual deficits
CPT/HCPCS: 36415; 80053; 80307; 81003; 83690; 85025; 96360; 99284; G0480; J7030

== ENCOUNTER 2021-02-09 12:50 | Emergency (ER) | payer BC, OTHER ==
[~2021-02-09] VITALS: Ht 170.2 cm; Wt 93.0 kg
[~2021-02-09 12:50] MED LIST changes: -Dicyclomine HCl 10mg/5ml oral soln ORAL ONE; -Lidocaine 2% Visc 15ml soln ORAL ONE; -Mylanta II UD 30ml ORAL ONE; +OMEPRAZOLE20 M2 ORAL; -chlordiazePOXIDE 25mg Cap ORAL ONE
[2021-02-09] MEDS ORDERED: Mylanta II UD 30ml ORAL ONE (13:15)
[2021-02-09] MEDS ORDERED: Lidocaine 2% Visc 15ml soln ORAL ONE (13:15)
[2021-02-09] MEDS ORDERED: Dicyclomine HCl 10mg/5ml oral soln ORAL ONE (13:15)
--- NOTE | 2021-02-09 13:17 | Emergency Room Report ---
History of Present Illness General Chief Complaint: Abdominal Pain Source: Patient (Smith Boone MD) Present Illness HPI Disclaimer: Please note that this report is being documented using [employer] technology. This can lead to erroneous entry secondary to incorrect interpr etation by the dictating instrument. HPI: 50-year-old male history of alcohol abuse and gastritis presents to the hospital complaining of nausea, vomiting and abdominal cramping. Patient drinks several beers daily. States he had between 8-10 beers yesterday but no alcohol today. He states he was been retching all morning with some blood streaking in his vomit. Feels dry and dehydrated. States he feels shaky as well. Denies diarrhea. Denies fever chills. Denies cough or congestion. Denies chest pain. Denies drug use. States he takes no medications. He has previously prescribed Librium but states he does not have any. 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 COVID-19 Screening: Negative COVID-19 COVID-19 Testing Source: a month ago (Smith Boone MD) Nursing Documentation-PMH Past Medical History: No History, Except For Hx Cardiac Problems: Yes Hx Hypertension: Yes Hx COPD: Yes Hx Diabetes: Yes - HYPERGLYCEMIA Hx Cancer: No Hx Gastrointestinal Problems: Yes Hx Neurological Problems: Yes Hx Cerebrovascular Accident: Yes - 2017 Hx Weakness: Yes Hx Neurologic Surgery: No (Smith Boone MD) Review of Systems All Other Systems: negative except mentioned in HPI (Smith Boone MD) Physical Exam Vital Signs Date Time Temp Pulse Resp B/P (MAP) Pulse Ox O2 Delivery O2 Flow Rate FiO2 02/09/21 12:53 98.1 111 20 156/95 (115) 98 Room Air General: Awake and alert, unkempt, anxious appearing HEENT: NC/AT. EOMI. Cardiovascular: Slightly tachycardic Resp: Normal work of breathing. No cough, wheezing or crackles appreciated Abdomen: Abdomen is soft, nondistended. Tender palpation of the epigastrium. No guarding. No tenderness in the lower quadrants. No rebound. Skin: Intact. No abrasions, laceration or rash over the exposed skin MSK: Normal tone and bulk. Moving all extremities. No obvious deformity. Neuro: Awake and alert. Mentating appropriately. No tremors (Smith Boone MD) Medical Decision Making ER Course 50-year-old male history of alcohol abuse presents for abdominal pain and vomiting. Differential includes not limited to gastritis, gastroenteritis, hepatitis, cholecystitis, alcohol withdrawal, pancreatitis, reflux disease, ulcer among others. (Smith Boone MD) ER Course Laboratory Tests Test 02/09/21 13:21 White Blood Count 5.3 K/UL (4.8-10.8) Red Blood Count 5.06 M/UL (4.70-6.10) Hemoglobin 15.7 G/DL (14.2-18.0) Hematocrit 47.5 % (42.0-52.0) Mean Corpuscular Volume 94 FL (80-99) Mean Corpuscular Hemoglobin 31.1 PG (27.0-31.0) H Mean Corpuscular Hemoglobin Concent 33.1 G/DL (32.0-36.0) Red Cell Distribution Width 12.7 % (11.6-14.8) Platelet Count 212 K/UL (150-450) Mean Platelet Volume 6.1 FL (6.5-10.1) L Neutrophils (%) (Auto) 46.3 % (45.0-75.0) Lymphocytes (%) (Auto) 44.3 % (20.0-45.0) Monocytes (%) (Auto) 6.7 % (1.0-10.0) Eosinophils (%) (Auto) 1.5 % (0.0-3.0) Basophils (%) (Auto) 1.2 % (0.0-2.0) Urine Color Pale yellow Urine Appearance Clear Urine pH 6 (4.5-8.0) Urine Specific [place] 1.015 (1.005-1.035) Urine Protein 2+ (NEGATIVE) H Urine Glucose (UA) 4+ (NEGATIVE) H Urine Ketones Negative (NEGATIVE) Urine Blood 1+ (NEGATIVE) H Urine Nitrite Negative (NEGATIVE) Urine Bilirubin Negative (NEGATIVE) Urine Urobilinogen Normal MG/DL (0.0-1.0) Urine Leukocyte Esterase Negative (NEGATIVE) Urine RBC 0-2 /HPF (0 - 0) H Urine WBC 0-2 /HPF (0 - 0) Urine Squamous Epithelial Cells Occasional /LPF Urine Bacteria None /HPF (NONE) Sodium Level 140 MMOL/L (136-145) Potassium Level 3.7 MMOL/L (3.5-5.1) Chloride Level 100 MMOL/L (98-107) Carbon Dioxide Level 26 MMOL/L (21-32) Anion Gap 14 mmol/L (5-15) Blood Urea Nitrogen 11 mg/dL (7-18) Creatinine 0.7 MG/DL (0.55-1.30) Estimated Glomerular Filtration Rate > 60 mL/min (>60) Glucose Level 250 MG/DL (74-106) H Calcium Level 8.8 MG/DL (8.5-10.1) Total Bilirubin Pending Aspartate Amino Transferase (AST) Pending Alanine Aminotransferase (ALT) Pending Alkaline Phosphatase Pending Total Protein Pending Albumin Pending Globulin Pending Lipase Pending 50-year-old male here with alcohol abuse and abdominal pain. Patient signed out to me by previous physician. He had a benign physical examination. Patient was requesting medication for alcohol withdrawal and was given Librium. Labs unremarkable. Patient discharged in stable condition. (Will Ordoñez M.D.) Last Vital Signs Date Time Temp Pulse Resp B/P (MAP) Pulse Ox O2 Delivery O2 Flow Rate FiO2 02/09/21 12:53 98.1 111 20 156/95 (115) 98 Room Air (Smith Boone MD) Scripts Thiamine Hcl* (VITAMIN B-1*) 100 Mg Tablet 100 MG ORAL DAILY, #30 TAB 0 Refills Prov: Smith Boone MD 02/09/21 Folic Acid* (FOLIC ACID*) 1 Mg Tablet 1 MG ORAL DAILY for SUPPLEMENT, #30 TAB Prov: Smith Boone MD 02/09/21 Omeprazole (OMEPRAZOLE) 20 Mg Capsule.dr 20 MG ORAL DAILY for Gerd for 30 Days, #30 CAP Prov: Smith Boone MD 02/09/21 Mag Hydrox/Al Hydrox/Simeth (MAALOX MAXIMUM STRENGTH SUSP) 355 Ml Oral.susp 355 ML PO BID for 5 Days, #1 BAG Prov: Smith Boone MD 02/09/21 Ondansetron Odt* (ZOFRAN ODT*) 4 Mg Tab.rapdis 4 MG BC EVERY 6 HOURS PRN for Nausea & Vomiting, #20 TAB 0 Refills Prov: Smith Boone MD 02/09/21 Famotidine* (Pepcid 20mg tablet*) 20 Mg Tablet 20 MG ORAL DAILY for 30 Days, #30 TAB 0 Refills Prov: Smith Boone MD 02/09/21 Referrals: [facility],REFERRING (PCP) Smith Boone MD Feb 09, 2021 13:17 Will Ordoñez M.D. Feb 09, 2021 14:50
--- NOTE | 2021-02-09 13:23 | NUR ---
pt arrives to ER with complaints of abdominal pain x few days and vomiting.
[2021-02-09] MEDS ORDERED: MAALOX MAXIMUM355 M1 PO ×2 (13:26→14:56)
[2021-02-09] MEDS ORDERED: VITAMIN B-1100 MG ORAL ×2 (13:26→14:56)
[2021-02-09] MEDS ORDERED: FOLIC ACID1 MG ORAL ×2 (13:26→14:56)
[2021-02-09] MEDS ORDERED: OMEPRAZOLE20 M2 ORAL ×2 (13:26→14:56)
[2021-02-09] MEDS ORDERED: FAMOTIDINE20 MG ORAL ×2 (13:26→14:56)
[2021-02-09] MEDS ORDERED: ONDANSETRON ODT4 MG BC ×2 (13:26→14:56)
[2021-02-09 14:14] LABS: APPEARANCE,URINE CLEAR; BILIRUBIN, URINE NEGATIVE (NEGATIVE); COLOR,URINE PALE YELLOW; GLUCOSE, URINE (UA) 4+ (NEGATIVE); KETONES,URINE NEGATIVE (NEGATIVE); LEUKOCYTE ESTERASE ,URINE NEGATIVE (NEGATIVE); NITRITE,URINE NEGATIVE (NEGATIVE); PH,URINE 6 (4.5-8.0); PROTEIN,URINE 2+ (NEGATIVE); UROBILINOGEN,URINE NORMAL MG/DL (0.0-1.0)
[2021-02-09 14:15] LABS: BASOPHILS % (AUTO) 1.2 % (0.0-2.0); EOSINOPHILS % (AUTO) 1.5 % (0.0-3.0); HEMATOCRIT 47.5 % (42.0-52.0); HEMOGLOBIN 15.7 G/DL (14.2-18.0); LYMPHOCYTES % (AUTO) 44.3 % (20.0-45.0); MEAN CORPUSCULAR VOLUME 94 FL (80-99); MONOCYTES % (AUTO) 6.7 % (1.0-10.0); NEUTROPHILS % (AUTO) 46.3 % (45.0-75.0); PLATELET COUNT 212 K/UL (150-450); RED BLOOD COUNT 5.06 M/UL (4.70-6.10); RED CELL DISTRIBUTION WIDTH 12.7 % (11.6-14.8); WHITE BLOOD COUNT 5.3 K/UL (4.8-10.8)
[2021-02-09] MEDS ORDERED: chlordiazePOXIDE 25mg Cap ORAL ONE (14:30)
[2021-02-09 14:34] LABS: ANION GAP 14 mmol/L (5-15); BLOOD UREA NITROGEN 11 mg/dL (7-18); CALCIUM 8.8 MG/DL (8.5-10.1); CARBON DIOXIDE 26 MMOL/L (21-32); CHLORIDE 100 MMOL/L (98-107); CREATININE 0.7 MG/DL (0.55-1.30); POTASSIUM 3.7 MMOL/L (3.5-5.1); SODIUM 140 MMOL/L (136-145)
[2021-02-09 14:48] LABS: ALANINE AMINOTRANSFERASE 73 U/L (12-78); ALKALINE PHOSPHATASE 118 U/L (46-116); ASPARTATE AMINO TRANSFERASE 44 U/L (15-37); BILIRUBIN,TOTAL 0.4 MG/DL (0.2-1.0)
[2021-02-09] MEDS ORDERED: Ketorolac 30mg Inj IV ONE (15:00)
[2021-02-09 15:49] VITALS: BP 156/95
== END 2021-02-09 15:51 | disposition home or self-care (01) ==
LOC: EMR 13:13
DX: R11.2 Nausea with vomiting, unspecified (principal); R10.9 Unspecified abdominal pain; I10 Essential (primary) hypertension; J44.9 Chronic obstructive pulmonary disease, unspecified; E11.9 Type 2 diabetes mellitus without complications; Z86.73 Personal history of transient ischemic attack (TIA), and cerebral infarction without residual deficits; R00.0 Tachycardia, unspecified
CPT/HCPCS: 36415; 80053; 81003; 83690; 85025; 96361; 96374; 96375; 99284; J2405; J7030